=== PATIENT | female | born 1990 | race Caucasian/White ===

== ENCOUNTER 2019-05-25 12:20 | Emergency (ER) | payer OTHER, SELFPAY ==
[2019-05-25 12:29] VITALS: BP 136/90; PULSE 116; RESP 18; TEMP 36.2; O2SAT 100
--- NOTE | 2019-05-25 13:38 | ED.URI ---
HPI - URI/Sore Throat General Chief Complaint: Skin/Abscess/Foreign Body Stated Complaint: possible hand foot and mouth Time Seen by Provider: 05/25/19 13:38 Source: patient, RN notes reviewed and other (significant other) Mode of arrival: ambulatory Limitations: no limitations and other (anxious and jittery) History of Present Illness HPI Narrative: 29-year-old female accompanied by significant other presents to express care with complaints of red scattered lesions on legs, buttocks and some on face with some scabbing noted on areas where patient has been picking at lesions. Patient states that she has applied aloe lotion to her rash states areas burn rates her discomfort as 4/10. Patient has past history of drug use has been on Methadone previously, states that she is presently in drug rehab and denies any recent illicit drug use. 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 Patient states that she thinks maybe she has hand foot and mouth, no lesions noted on palms of hands, feet or in mouth. Patient denies any fevers chills, appearance is MD elicited complaint: other (scattered lesions on body) Pertinent past history: other (Hepatitis C) Consistency: constant Severity: moderate Pain scale (0-10): 4 Able to tolerate fluids by mouth: Yes Exacerbating factors: nothing Relieving factors: nothing Associated symptoms: denies other symptoms Treatments prior to arrival: other (aloe to skin lesions) Related Data Home Medications Medication Instructions Recorded Confirmed budesonide-formoterol [Symbicort] 2 puff INHALATION Q12H 05/25/19 05/25/19 fluoxetine 20 mg PO DAILY 05/25/19 05/25/19 hydroxyzine HCl 50 mg PO TID 05/25/19 05/25/19 omeprazole 20 mg PO DAILY 05/25/19 05/25/19 quetiapine 200 mg PO HS 05/25/19 05/25/19 Allergies Allergy/AdvReac Type Severity Reaction Status Date / Time codeine Allergy Intermediate rash and Verified 05/25/19 13:51 vomiting Review of Systems Review of Systems: Narrative: CONSTITUTIONAL: Denies fever, chills, or sweats. EYES: Denies visual changes, redness, or discharge. ENT: Denies rhinorrhea, congestion, sore throat, or otalgia. CARDIOVASCULAR: Denies chest pain, palpitations, or edema. RESPIRATORY: Denies cough or dyspnea. GASTROINTESTINAL: Denies abdominal pain, nausea, vomiting, or diarrhea. GENITOURINARY: Denies dysuria or hematuria. SKIN:scattered red circular lesion noted on anterior and posterior legs, between buttock folds, some to face states burn MUSCULOSKELETAL: Denies back pain, joint pain, or myalgia. NEUROLOGIC: Denies headache, numbness, or weakness. PSYCHIATRIC: Positive history of anxiety,bipolar depression. illicit drug use. Is anxious and jittery All systems reviewed & are unremarkable except as noted in HPI and below PMFSH Past Medical History Medical History (Updated 05/27/19 @ 20:36 by Shelby Awan NP) Asthma Bipolar depression GERD (gastroesophageal reflux disease) Hepatitis C Surgical History Surgical History (Updated 05/27/19 @ 20:29 by Shelby Awan NP) H/O LEEP Hx of tonsillectomy Status post tooth extraction, class I edentulism Social History Social History (Updated 05/27/19 @ 20:37 by Shelby Awan NP) Smoking packs per day: 1 Smoking cigarettes per day: 20.0 Smoking status: Current every day smoker Substance use: unknown Substance use type: heroin Living arrangements: with family Gender identity (if verbalized by the patient): Female Comments At time of signature, agree with nursing past medical, surgical, social and family history. There is no relevant family history pertinent to the presenting complaint Exam Narrative: Exam Narrative: GENERAL: unkept-appearice, edentulous, well-nourished, and in no acute distress. HEAD: Normocephalic, atraumatic. EYES: PERRLA and EOMI. ENT: Nares clear, no rhinorrhea or epistaxis. Mucous membrane
== END 2019-05-25 14:05 | disposition home or self-care (01) ==
PROVIDERS: Emergency Provider Registered Nurse
DX: R21 Rash and other nonspecific skin eruption (principal); F17.200 Nicotine dependence, unspecified, uncomplicated; J45.909 Unspecified asthma, uncomplicated; F31.9 Bipolar disorder, unspecified; K21.9 Gastro-esophageal reflux disease without esophagitis; Z86.19 Personal history of other infectious and parasitic diseases
CPT/HCPCS: 99213; G0463

== ENCOUNTER 2019-11-04 18:55 | Emergency (ER) | payer OTHER, SELFPAY ==
[2019-11-04 19:04] VITALS: BP 131/89; PULSE 78; RESP 18; TEMP 36.9; O2SAT 96
--- NOTE | 2019-11-04 19:17 | ED.PREGNANCY ---
HPI - General Chief complaint: Vaginal Bleeding Stated complaint: preg/vag bleed Time Seen by Provider: 11/04/19 19:09 History of Present Illness HPI Narrative: Patient presents in the custody of the assisted guards, for vaginal bleeding. She had a little bit yesterday, and again a little bit today. she says that she is and her last menstrual period was in June. That would make her Ab0. She has no pain or discomfort. She has small amount of light pink vaginal discharge. She had hypertension with her last . She has 2 live children. She is worried that she has miscarried. She has a history of hepatitis C. Her surgery history includes tonsillectomy, LEEP, and lithotripsy. She used to smoke cigarette, she used to smoke marijuana, she used to do drugs. She has been in assisted for 2 months. She has not been sick otherwise. MD Complaint: vaginal bleeding Onset (ago): day(s) Pain Consistency: intermittent Location: pelvis Severity: mild Exacerbating factors: none Associated symptoms: denies other symptoms Vaginal bleeding: light Hx Last Menstrual Period: June Related Data Home Medications Medication Instructions Recorded Confirmed hydroxyzine pamoate [Vistaril] 25 mg PO TID 11/04/19 omeprazole 11/04/19 ondansetron HCl 11/04/19 11/04/19 sertraline 50 mg PO DAILY 11/04/19 Allergies Allergy/AdvReac Type Severity Reaction Status Date / Time codeine Allergy Nausea and Verified 11/04/19 18:56 Vomiting latex Allergy Rash Verified 11/04/19 18:56 Review of Systems Review of Systems: Narrative: CONSTITUTIONAL: Denies fever, chills, or sweats. EYES: Denies visual changes, redness, or discharge. ENT: Denies rhinorrhea, congestion, sore throat, or otalgia. CARDIOVASCULAR: Denies chest pain, palpitations, or edema. RESPIRATORY: Denies cough or dyspnea. GASTROINTESTINAL: Denies abdominal pain, nausea, vomiting, or diarrhea. GENITOURINARY: Denies dysuria or hematuria. She does have frequency of urination. SKIN: Denies rash or itching. MUSCULOSKELETAL: Denies back pain, joint pain, or myalgia. NEUROLOGIC: Denies headache, numbness, or weakness. . All systems reviewed & are unremarkable except as noted in HPI and below PMFSH Past Medical History Medical History (Updated 11/04/19 @ 19:25 by Angella Chacon MD) History of LEEP (loop electrosurgical excision procedure) of cervix complicating Surgical History Surgical History (Updated 11/04/19 @ 19:24 by Angella Chacon MD) History of lithotripsy History of tonsillectomy Social History Social History (Updated 11/04/19 @ 19:24 by Angella Chacon MD) Smoking status: Former smoker Alcohol intake: former Substance use: former Gender identity (if verbalized by the patient): Female Exam Narrative: Exam Narrative: GENERAL: Well-appearing, well-nourished, and in no acute distress. HEAD: Normocephalic, atraumatic. EYES: PERRLA and EOMI. ENT: Nares clear, no rhinorrhea or epistaxis. Mucous membranes moist. NECK: Supple. CHEST: Clear to auscultation. No respiratory distress. HEART: Regular rate and rhythm. No murmur heard. Normal peripheral pulses. ABDOMEN: Soft, nontender, nondistended, normal active bowel sounds. EXTREMITIES: Normal range of motion. No edema. SKIN: Warm, dry, no rash. NEURO: No focal deficits. Alert and oriented x3. PSYCH: Normal mood and affect. : Normal exterior. No vaginal bleeding. Scant blood on the speculum. ROs closed. uterus only slightly enlarged. Course Reevaluation(s) Reevaluation #1: Went back in the room and talk to the patient about her test results. Told her that this is a threatened , and that she will need to follow-up visit next week to determine whether or not the will be successful. Date: 11/04/19 Time: 20:13 Vital Signs Vital signs: Vital Signs Temperature 98.5 F 11/04/19 19:04 Pulse Rate 78 11/04/19 19:04 Respiratory Rate 18 11/04/19 19:
--- NOTE | 2019-11-04 19:20 | PC.NURSE ---
No heart tones heard per Doppler-Dr Chacon aware
[2019-11-04 19:34] LABS: Basophils Percent Auto 0.3 % (0.2-1.2); Eosinophils Absolute Auto 0.2 K/mm3 (0-0.3); Eosinophils Percent Auto 2.6 % (0-4.4); Hematocrit 38.9 % (37.0-47.0); Hemoglobin 13.4 g/dL (12.0-15.0); Immature Granulocyte Absolute 0.02 K/mm3 (0.00-0.031); Immature Granulocyte Percent A 0.2 % (0-0.5); Lymphocytes Absolute Auto 3.02 K/mm3 (0.9-3.2); Lymphocytes Percent Auto 34.5 % (18.3-44.2); Mean Corpuscular HGB Conc 34.4 g/dl (32-36); Mean Corpuscular Hemoglobin 29.8 pg (26-34); Mean Corpuscular Volume 86.6 fl (80-100); Mean Platelet Volume 9.8 fl (7.4-10.4); Monocytes Absolute Auto 0.6 K/mm3 (0.1-0.6); Monocytes Percent Auto 7.3 % (2.6-8.5); Neutrophils Absolute Auto 4.8 K/mm3 (1.3-6.7); Neutrophils Percent Auto 55.1 % (45.5-73.1); Platelet Count Result 258 k/mm3 (150-375); Red Blood Count 4.49 M/mm3 (4.2-5.4); Red Cell Distribution Width 14.6 % (11.5-14.5); White Blood Count 8.8 K/mm3 (4.5-10.0)
[2019-11-04 19:39] LABS: Add Urine Microscopic? YES; Appearance Urine Clear (Clear); Bilirubin Urine Negative (Negative); Blood Urine 1+ (Negative); Color Urine Straw (Yellow); Glucose Urine UA Negative (Negative); Ketones Urine Negative (Negative); Leukocyte Esterase Ur Negative LEU/UL (Negative); Mucus Urine Rare /lpf; Nitrate Urine Negative (Negative); Protein Urine Negative (Negative); Specific Grav Ur 1.009 (1.001-1.035); Squamous Epithelial Cell Urine Rare /hpf (Few); Urobilinogen Urine Negative mg/dL (<2.0)
[2019-11-04 19:51] VITALS: BP 120/75; BP 137/84; PULSE 69; PULSE 72
[2019-11-04 19:53] VITALS: BP 108/86; PULSE 78
[2019-11-04 20:00] LABS: Urine Pregnancy Test Positive
[2019-11-04 20:01] LABS: Pregnancy On Board Control Positive; Specific Gravity Ur 1.007 (1.010-1.035)
== END 2019-11-04 20:25 ==
PROVIDERS: Emergency Medicine; Emergency Provider Emergency Medicine
DX: O20.0 Threatened abortion (principal); Z3A.00 Weeks of gestation of pregnancy not specified; Z87.891 Personal history of nicotine dependence
CPT/HCPCS: 36415; 81001; 81025; 84702; 85025; 85461; 99284

== ENCOUNTER 2019-11-10 13:57 | Emergency (ER) | payer OTHER, SELFPAY ==
--- NOTE | ~2019-11-10 | US_ITS ---
EXAMINATION: US OB >= 14 weeks Fetus DATE: 11/10/2019 14:45 INDICATION: Vaginal bleeding. . TECHNIQUE: Real-time ultrasound of the pelvis was performed. COMPARISON: None. FINDINGS: There is a single living fetus in variable presentation. The placenta is anterior and covers the int ernal cervical os. heart rate is 154 beats per minute (bpm). The amniotic fluid volume is subje ctively normal. The following biometric data were obtained: Biparietal diameter (BPD): 2.9 cm; head circumference (HC): 10.5 cm; abdominal circumference (AC): 8. 5 cm; femur length (FL): 1.7 cm. These measurements are concordant. Estimated weight is 112 g +/- 17 g. As single measurements, these parameters are each equal to the following estimated gestational ages: BPD: 15 weeks 1 days. HC: 15 weeks 0 days. AC: 14 weeks 6 days. FL: 15 weeks 1 days. estimated gestational age based solely on measurements from this exam is 15 weeks 0 days +/- 1 weeks 0 days. IMPRESSION: 1. Single living fetus in variable presentation. 2. Estimated gestational age of 15 weeks and 0 days with estimated date of delivery of 05/03/2020. 3. Placenta previa. Follow-up ultrasound is recommended later in the second trimester to confirm reso lution. Reviewed, dictated and finalized at location B. IMPRESSION: 1. Single living fetus in variable presentation. 2. Estimated gestational age of 15 weeks and 0 days with estimated date of del ivan of 05/03/2020. 3. Placenta previa. Follow-up ultrasound is recommended later in the second tri mester to confirm resolution.
[2019-11-10 14:13] VITALS: BP 121/83; PULSE 68; RESP 18; TEMP 36.8; O2SAT 97
--- NOTE | 2019-11-10 14:16 | ED.ABDPAIN ---
HPI - Abdominal Pain General Chief Complaint: Vaginal Bleeding <MICK Berry Last Filed: 11/10/19 16:05> Stated Complaint: , bleeding <MICK Berry Last Filed: 11/10/19 16:05> Time Seen by Provider: 11/10/19 14:08 <MICK Berry Last Filed: 11/10/19 16:05> Source: patient and police <MICK Berry Last Filed: 11/10/19 16:05> Mode of arrival: ambulatory <MICK Berry Last Filed: 11/10/19 16:05> Limitations: no limitations <MICK Berry Last Filed: 11/10/19 16:05> History of Present Illness HPI narrative: Patient is a 29-year-old female currently incarcerated who presents from the care home for evaluation of continued bleeding noted as red blood at this time patient is been seen in the last week after having spotting had blood work performed was discharged home. Patient denies any pain or other complaints and on arrival is in the room in no distress notes she has roughly 8 weeks per last menstrual period. Patient is G3, P2. <MICK Berry Last Filed: 11/10/19 16:05> Related Data Home Medications: Home Medications Medication Instructions Recorded Confirmed budesonide-formoterol [Symbicort] 2 puff INHALATION Q12H 05/25/19 05/25/19 fluoxetine 20 mg PO DAILY 05/25/19 05/25/19 hydroxyzine HCl 50 mg PO TID 05/25/19 05/25/19 omeprazole 20 mg PO DAILY 05/25/19 05/25/19 quetiapine 200 mg PO HS 05/25/19 05/25/19 hydroxyzine pamoate [Vistaril] 25 mg PO TID 11/04/19 omeprazole 11/04/19 ondansetron HCl 11/04/19 11/04/19 sertraline 50 mg PO DAILY 11/04/19 <MICK Berry Last Filed: 11/10/19 16:05> Allergies/Adverse Reactions: Allergies Allergy/AdvReac Type Severity Reaction Status Date / Time codeine Allergy Intermediate rash and Verified 11/10/19 15:53 vomiting latex Allergy Rash Unverified 11/10/19 15:53 <Orestes Soto PA-C - Last Filed: 11/10/19 16:05> Review of Systems Review of Systems: All systems reviewed & are unremarkable except as noted in HPI and below <Orestes Soto PA-C - Last Filed: 11/10/19 16:05> PMFSH Past Medical History Medical History: Medical History (Updated 11/10/19 @ 16:05 by Orestes Soto PA-C) Asthma Bipolar depression GERD (gastroesophageal reflux disease) Hepatitis C Hepatitis C History of LEEP (loop electrosurgical excision procedure) of cervix complicating <Orestes Soto PA-C - Last Filed: 11/10/19 16:05> Surgical History Surgical History: Surgical History (System 11/10/19 @ 15:53 by Ivet Mullins) H/O LEEP History of lithotripsy History of tonsillectomy Hx of tonsillectomy Status post tooth extraction, class I edentulism <MICK Berry Last Filed: 11/10/19 16:05> Social History Social History: Social History (System 11/10/19 @ 15:53 by Ivet Mullins) Smoking packs per day: 1 Smoking cigarettes per day: 20.0 Smoking status: Current every day smoker Alcohol intake: former Substance use: unknown Substance use type: heroin Gender identity (if verbalized by the patient): Female <MICK Berry Last Filed: 11/10/19 16:05> Exam Narrative: Exam Narrative: GENERAL: Well-appearing, well-nourished, and in no acute distress. HEAD: Normocephalic, atraumatic. EYES: PERRLA and EOMI. ENT: Nares clear, no rhinorrhea or epistaxis. Mucous membranes moist. CHEST: Clear to auscultation. No respiratory distress. No wheezes rales or rhonchi HEART: Regular rate and rhythm. No murmur heard. Normal peripheral pulses. ABDOMEN: Soft, nontender, nondistended EXTREMITIES: Normal range of motion. No edema. SKIN: Warm, dry, no rash. NEURO: No focal deficits. Alert and oriented x3. PSYCH: Normal mood and affect. <MICK Berry Last Filed: 11/10/19 16:05> Course Course Emergency Course: Patient in the room at this t
--- NOTE | 2019-11-10 14:20 | PC.NURSE ---
Pt to U/S via . Officers remain w/ pt.
[2019-11-10] MEDS: SODIUM CHLORIDE 0.9% IV 1,000 ML 999 ML IV CONT (14:50)
[2019-11-10 15:08] LABS: Alanine Aminotransferase 49 U/L (4-35); Albumin Level 3.8 g/dL (3.5-5.1); Alkaline Phosphatase 92 U/L (38-126); Anion Gap 6 mmol/L (8-16); Aspartate Amino Transferase 44 U/L (14-36); Bilirubin,Total 0.2 mg/dL (0.2-1.3); Blood Urea Nitrogen 9 mg/dL (7-17); Calcium 8.8 mg/dL (8.4-10.2); Carbon Dioxide 21 mmol/L (22-30); Chloride 106 mmol/L (98-107); Estimated CRCL calculation 164 ml/min; Estimated Glomerular Filt Rate > 60; Glucose 96 mg/dL (65-105); Sodium 133 mmol/L (137-145)
[2019-11-10 15:28] VITALS: BP 124/73; PULSE 74; RESP 20; O2SAT 99
[2019-11-10 15:40] LABS: Add Urine Microscopic? YES; Appearance Urine Clear (Clear); Bilirubin Urine Negative (Negative); Blood Urine 1+ (Negative); Color Urine Yellow (Yellow); Glucose Urine UA Negative (Negative); Ketones Urine Negative (Negative); Leukocyte Esterase Ur Trace LEU/UL (Negative); Mucus Urine Rare /lpf; Nitrate Urine Negative (Negative); Protein Urine Negative (Negative); RBC Urine 0-2 /hpf (0-2); Specific Grav Ur 1.016 (1.001-1.035); Squamous Epithelial Cell Urine Many /hpf (Few); Urobilinogen Urine Negative mg/dL (<2.0)
[2019-11-10 16:26] VITALS: BP 128/69; PULSE 69; RESP 18; O2SAT 97
== END 2019-11-10 16:28 | disposition home or self-care (01) ==
PROVIDERS: Emergency Medicine Emergency Medical Services; Emergency Provider General Practice; PCP Obstetrics & Gynecology
DX: O20.9 Hemorrhage in early pregnancy, unspecified (principal); Z3A.08 8 weeks gestation of pregnancy
CPT/HCPCS: 36415; 76805; 80053; 81001; 84702; 85461; 87077; 87086; 87088; 87186; 96360; 99284; J7030

== ENCOUNTER 2024-10-21 16:51 | Emergency (ER) | payer OTHER, SELFPAY ==
--- OUTSIDE RECORDS SUMMARY | 2024-10-21 16:54 | XMS_ITS | Patient Health Record ---
Author Organization [facility] Address [address] [place] [address] Care Team Providers Care Keyboard Instrument Repairer Name Role Phone Juan C Cardoso Primary Care Provider [phone] Cece Hanna Unavailable [phone] [facility], [facility] Unavailable U Johana Brock Unavailable [phone] Oanh Vázquez Unavailable [phone] Joellen Ayala Unavailable Allergies Allergen (clinical drug ingredient) Drug/Non Drug Allergy documented on EMR Reaction Allergy Type Onset Date Status Latex latex (uncoded) swelling Allergy Acti ve codeine Codeine Sulfate hives Drug Allergy A ctive Results Component Value Reference Range Notes Chlamydia trachomatis,Neisse chico gonorrhoeae, and Trichomonas vaginalis, GUI ([id number]) Reviewed date:08/30/2024 09:57:39 AM Interpretation:Normal Performing Lab:[facility], [address] [place] [address] [facility], Phone - [phone], Director - Mimi Notes/Report: Chlamydia by GUI Negative Negative Gonococcus by GUI Negative Negative Trich vag by GUI Negative Negative Glucose Fingerstick Reviewed date:08/09/2024 04:59:07 PM Interpretation: Performing Lab: Notes/Report: Result 82 70 - 120 mg/dL 12 Panel Urine Drug Screen Reviewed date:08/09/2024 04:59:14 PM Interpretation: Performing Lab: Notes/Report: THC neg JHON neg MOP (OPI) neg AMP neg MET neg BAR neg BZO neg MDMA neg MTD neg OXY neg PCP neg BUP neg Test, Urine Reviewed date:08/09/2024 04:59:21 PM Interpretation: Performing Lab: Notes/Report: Test, Urine neg Negative - Negative Breathalyzer Reviewed date:08/09/2024 04:59:27 PM Interpretation: Performing Lab: Notes/Report: DAVID 0.008 Test, Urine Reviewed date:08/25/2024 12:02:48 PM Interpretation: Performing Lab: Notes/Report: Test, Urine neg Negative - Negative 12 Panel Urine Drug Screen Reviewed date:08/25/2024 12:03:34 PM Interpretation: Performing Lab: Notes/Report: THC neg JHON neg MOP (OPI) neg AMP neg MET neg BAR neg BZO neg MDMA neg MTD neg OXY neg PCP neg BUP pos 14 Panel Urine Drug Screen Reviewed date:09/08/2024 11:19:03 AM Interpretation: Performing Lab: Notes/Report: THC neg JHON neg MOP (OPI) neg AMP neg MET neg BAR neg BZO neg MDMA neg MTD neg OXY neg PCP neg BUP POS TCA neg FTY neg 14 Panel Urine Drug Screen Reviewed date:10/04/2024 11:16:59 AM Interpretation: Performing Lab: Notes/Report: THC neg JHON neg MOP (OPI) neg AMP neg MET neg BAR neg BZO neg MDMA neg MTD neg OXY neg PCP neg BUP POS TCA neg FTY neg Chlamydia trachomatis,Neisse chico gonorrhoeae, and Trichomonas vaginalis, GUI ([id number]) Reviewed date:08/11/2024 01:35:48 PM Interpretation: Performing Lab:[facility], [address] [place] [address], Phone - [phone], Director - Mimi Notes/Report: Chlamydia by GUI Negative Negative Gonococcus by GUI Negative Negative Trich vag by GUI Positive Negative 14 Panel Urine Drug Screen Reviewed date:09/15/2024 11:04:03 AM Interpretation: Performing Lab: Notes/Report: THC neg JHON neg MOP (OPI) neg AMP neg MET neg BAR neg BZO neg MDMA neg MTD neg OXY neg PCP neg BUP POS TCA neg FTY neg Reason For Referral No Information Medications Medication SIG (Take, Route, Frequency, Duration) Notes Start Date End Date Status Melatonin 5 MG 1 tablet at bedtime as needed Orally Once a day; Duration: 30 days 08/08/2024 Active Sublocade 300 MG/1.5ML 1.5 mL Subcutaneo us every 28 days 09/15/2024 Active Ventolin HFA 108 (90 Base) MCG/ACT 2 puffs as needed for shortness of breath Inhalation every 4 hrs 08/26/2024 Active Buprenorphine HCl 8 MG 1 tablet under th e tongue and allow to dissolve Sublingual twice a day; Duration: 7 days 09/08/2024 Active Promethazine-DM 6.25-15 MG/5ML 5 mL as needed Orally every 6 hrs; Duration: 10 days 08/26/2024 Active Sublocade 300 MG/1.5ML 1.5 mL Subcutaneo us Once 10/04/2024 Active Nicotine Polacrilex 4 MG Chew 1 piece as needed for nicotine cravings Mouth/Throat up to every hour (max of 20 pieces per day); Duration: 7 days 08/08/2024 Active Ipratropium Lockwood 0.03 % 2 sprays in each nostril Nasally Twice a day; Duration: 30 days As needed congestion 08/26/2024 Active Multi Vitamin - 1 tablet Orally Once a day; Duration: 30 days 08/08/2024 Active Acetaminophen 500 MG two tablets as need ed for pain (maximum of 6 tablets in 24 hours) Orally every 6 hrs 08/26/2024 Active SEROquel 25 MG 1 tablet Orally twice a day; Duration: 30 days As needed 08/18/2024 Active Ondansetron HCl 4 MG 1 tablet Orally thr ee times daily as needed; Duration: 30 days Not-Taking Zoloft 50 MG 1 tablet Orally Once a day; Duration: 30 days Active SEROquel 100 MG 1.5 tablet x4 days then 2 tablets x26 days Orally Once a day; Duration: 30 days Active BuSpar 10 MG 1 tablet Orally thre e times daily; Duration: 30 days Active Phenazopyridine HCl 200 MG 1 tablet afte r meals Orally Three times a day Not-Taking metroNIDAZOLE 500 MG 1 tablet Orally twi ce a day; Duration: 7 days 08/10/2024 Active tiZANidine HCl 4 MG 1 tablet as needed Orally Three times a day Not-Taking hydrOXYzine HCl 25 MG 1 capsule Orally every 8 hrs; Duration: 30 days As needed 08/08/2024 Active ProAir HFA 108 (90 Base) MCG/ACT 2 puffs as needed Inhalation every 6 hrs; Duration: 30 days Not-Daphne g Immunizations Vaccine Route Administration Date Status Comme nts FLU VAC NO PRSV 4VAL 6 mo+ IM Intramuscular 01/14/2019 Adm inistered Social History Tobacco Use: Social History Observation Description Date Details (start date - stop date) Current Smoker NA - NA Sex Assigned At : Social History Observation Description Sex Assigned At Female Alcohol Screen (Audit-C) Question Answer Notes Did you have a drink contain ing alcohol in the past year? Yes How often did you have a dri nk containing alcohol in the past year? Monthly or less (1 point) How many drinks did you have on a typical day when you were drinking in the past year? 10 or more drinks (4 points) How often did you have 6 or more drinks on one occasion in the past year? Less than monthly (1 point) Points 6 Interpretation Positive PRAPARE Question Answer Notes Date Completed/Updated: 08/08/2024 What is your current housing situation? I do not have housing (staying with others, in a hotel, in a usp, living outside on the street, on a beach, or in a park) Client is current homeless, client has been in prison since July 15 and is not sure where she is going after finishing in the [facility]. Client believes once she gets through treatment she will have an easier time trying to find stable housing. Are you worried about losing your housing? Yes What is the highest level of school that you have finished? High school diploma or GED What is your current work situation? Unemployed and seeking work In the past year, have you o r any family members you live with been unable to get any of the following when it was really needed? Check all that apply Food,Clothing,Medicine or any health care (medical, dental, mental health or vision) Has lack of transportation k ept you from medical appointments, meetings, work or from getting things needed for daily living? Yes, it has kept me from medical appointments or from getting my medications How often do you see or talk to people that you care about and feel close to? (For example: talking to friends on the phone, visiting friends or family, going to anabaptism or club meetings) More than 5 times a week How stressed are you? Stress is when someone feels tense, nervous, anxious, or can\t sleep at night because their mind is troubled Quite a bit In the past year have you sp ent more than 2 nights in a row in a prison, residential, long-term center, or juvenile correctional facility? Yes What was your release date? 08/08/2024 Do you feel physically and emotionally safe where you currently live? Unsure In the past year, have you b een afraid of your partner or ex-partner? No PRAPARE Score: 14 Enabling Services Provided? Yes Please specify Case Management Asse ssment First Visit Tobacco Control (Standard) Question Answer Notes Tobacco use: Current every day smoker Additional Findings: Tobacco user Heavy cigarett e smoker (20-39 cigs/day) Section Notes: Problems Problem Type SNOMED Code ICD Code Onset Dates Problem Status W/U Status Risk Notes Problem Tobacco user (827358555) Nicotine dependence, unspecified, uncomplicated (F17.200) Active confirmed Problem Nausea (179274191) Nausea (R11.0) Active confir med Problem Tobacco dependence (18367816) Tobacco dependence (F17.200) Active confirmed Problem Major depression (950475334) Major depression (F32.9) Active confirmed Problem Anxiety (39225269) Anxiety (F41.9) Active confi rmed Problem Bipolar 1 disorder (514570002) Bipolar 1 disorder (F31.9) Active confirmed Problem (91122781) (Z33.1) Active confirmed Problem Urinary tract infectious disease (65170686) UTI (urinary tract infection) (N39.0) Active confirmed Problem Seizure disorder (285171141) Seizure disorder (G40.909) Active confirmed Problem Overweight (110488123) Over weight (E66.3) Active confirmed Problem Exposure to sexually transmissible disorder (event) (388794995) STD exposure (Z20.2) Active confirmed Problem Delayed menses (24265986) Delayed menses (N91.0) Active confirmed Problem Chronic hepatitis C (086669823) Chronic hepatitis C without hepatic coma (B18.2) 020 Active confirmed Problem Opioid dependence (54279250) Opioid use disorder, severe (F11.20) Active confirmed Problem Gastroesophageal reflux disease (437084646) GERD without esophagitis (K21.9) Active confirmed Problem Reflux gastritis (72399343) Reflux gastritis (K29.60) Active confirmed Problem Asthma without status asthmaticus (11905981) Asthma, unspecified asthma severity, unspecified whether complicated, unspecified whether persistent (J45.909) Active confirmed Problem Hand, foot and mouth disease (739539051) Hand, foot and mouth disease (B08.4) Active confirmed Problem Mild persistent asthma with exacerbation (J45.31) Active confirmed Problem Opioid use disorder (1329920274) Opioid use disorder (F11.99) Active confirmed Problem Stimulant dependence (008719167) Methamphetamine use disorder, moderate (F15.20) Active confirmed Vital Signs Heart Rate 60 /min 10/04/2024 Temperature 98.8 degrees Fahrenheit 08/26/2024 Respiratory Rate 18 /min 10/04/2024 Oximetry 97 % 10/04/2024 Blood pressure diastolic 62 mm Hg 10/04/2024 Height 64 in 10/04/2024 Blood pressure systolic 100 mm Hg 10/04/2024 Weight 155 lb 6 oz lbs 10/04/2024 BMI 26.67 kg/m2 10/04/2024 Encounters Encounter Location Date Provider Diagnosis [facility] [place] [address] 08/09/2024 Cece Hanna [facility] [place] [address] 08/08/2024 Cece Hanna Opioid use disorder F11.99 ; Methamphetamine use disorder, moderate F15.20 ; Exposure to potential infection Z20.9 and Encounter for annual physical exam Z00.00 [facility] [place] [address] 08/08/2024 Joellen Ayala Opioid use disorder F11.99 and Methamphetamine use disorder, moderate F15.20 [facility] [address] [address] 08/24/2024 Cece Sparshannan Opioid use disorder, severe F11.20 ; Bipolar 1 disorder F31.9 and Tobacco dependence F17.200 [facility] [place] [address] 08/25/2024 Johana Patel Opioid use disorder, severe F11.20 ; Over weight E66.3 and STD exposure Z20.2 [facility] [address] [place] [address] 08/26/2024 Juan C Cardoso Over weight E66.3 ; Viral URI with cough J06.9 and Asthma, unspecified asthma severity, unspecified whether complicated, unspecified whether persistent J45.[address] [address] 09/08/2024 Oanh Szlufik Opioid use disorder F11.99 and Over weight E66.[address] [address] 09/15/2024 Oanh Szlufik Opioid use disorder F11.99 and Over weight E66.[address] [address] 10/04/2024 Oanh Szlufik Opioid use disorder F11.99 and Over weight E66.[address] [address] 07/29/2024 Juan C Cardoso [address] [address] 08/09/2024 Juan C Cardoso [address] [address] 08/10/2024 Juan C Cardoso Trichomonas vaginali s (TV) infection A59.01 [facility] [address] [place] [address] 08/15/2024 Cece Hanna Bipolar 1 disorder F31.9 Assessments Encounter Date Diagnosis (ICD Code) Assessment Notes Treatment Notes Treatment Clinical Notes Section Notes 08/24/2024 Bipolar 1 disorder (ICD-10 - F31.9) Reasons, potential benefits, interactions and side effects of all medications were discussed. The Patient/Guardian asked appropriate questions, appeared to understand the answers, and decided to accept the treatment and continue being followed. Alternatives and expected course without treatment were reviewed. The Patient/Guardian is aware of the need to contact the office or return for an earlier appointment if any problems or concerns arise. May also contact the 24-hour crisis hotline ([facility]), refer to the closest emergency room or call 911 if new symptoms arise or existing symptoms worsen. The Patient/Guardian is aware that this would apply to symptoms like: suicidal ideation, homicidal ideation, high risk behaviors, manic symptoms, psychotic symptoms, physical symptoms, or any other symptoms that may be dangerous to self or others. Greater than 50% of time spent on coordination and counseling where psychopharmacology as well as psychotherapeutic interventions were discussed along with review of treatments in the past. Education provided concerning need for adequate hydration. Patient/Guardian verbalized understanding of education, treatment plan and follow up. Appointment performed via secure Zoom connection while pt is on [facility] Follow up in 4 weeks or sooner as needed. May self-administer or be administered own oral medication per [place] Protocols. Provided informed consent with understanding of side effects, risks and benefits as well as alternative treatments as previously discussed and with the above recommended medications ang other aspects of the treatment program. Agrees to return sooner if symptoms worsen or suicidal or homicidal ideations occur. support and education provided concerning illness and treatment plan, risks and benefits, pt verbalized understanding of the same and agreeable - presented via secure Zoom connection with pt on [facility]. Has been treated for mood disorders and disruptive behavior since she was 14. Met her bio Dad at 14 yrs old and feels like she started experiencing more problems from then on. DARLING, mainly fentynal, along with meth and cocaine. Quit using July 14, 2024. Admitted to [facility] approx 2 weeks ago. Experiencing mood swings, some irritability, mild depression, moderate to severe anxiety. Easily irritated.Easily distracted. Ok energy and motivation. Poor quality sleep due to difficulty maintaining sleep. Denies SI/HI, AH/VH. Had been stable on current med regimen but stopped taking meds 7-8 months ago. Prefers to continue with same med regimen, but feels Seroquel needs to be titrated. - titrate Seroquel for mood swings, depression, anxiety, evaluate at follow up 08/24/2024 Opioid use disorder, severe (ICD-10 - F11.20) - -remains on [facility] for DARLING - will be DC'd to [facility] in a couple weeks - Buprenorphine has alleviated cravings, denies thoughts or dreams of using. Prefers to taper Buprenorphine - taper Buprenorphine for DARLING, evaluate at follow up 08/15/2024 Bipolar 1 disorder (ICD-10 - F31.9) 08/25/2024 Opioid use disorder, severe (ICD-10 - F11.20) 08/26/2024 Over weight (ICD-10 - E66.3) 08/26/2024 Viral URI with cough (ICD-10 - J06.9) MASK X 10 DAYS, ISOLATE X 5 DAYS. 09/15/2024 Over weight (ICD-10 - E66.3) 09/15/2024 Opioid use disorder (ICD-10 - F11.99) 08/10/2024 Trichomonas vaginalis (TV) infection (ICD-10 - A59.01) 08/08/2024 Opioid use disorder (ICD-10 - F11.99) 08/08/2024 Opioid use disorder (ICD-10 - F11.99) SUPR Programs: Based on an evaluation of [facility] Patient Placement Criteria, a recommendation for placement in Level III treatment is indicated and approved. Confirmation of diagnosis is documented in the initial treatment plan.SUPR Programs: Based on an evaluation of [facility] Patient Placement Criteria, a recommendation for placement in Level III treatment is indicated and approved. Confirmation of diagnosis is documented in the initial treatment plan.Admit to the [facility] and initiate standing/protocol orders: The following PRN medications may be self-administered by patients under the supervision of approved staff or administered by nursing staff: Ibuprofen 200mg, 2-4 tablets by mouth (with food) every 6 hours as needed for pain (unless on lithium). (NOTE: Ibuprofen and acetaminophen may be given together, but alternating is recommended for continuous pain relief. Guaifenesin 400 mg, 1 tablet by mouth every four hours as needed for cough and chest congestion (take with large glass of water). Loratadine 10 mg, 1 tablet by mouth daily as needed for allergies, watery itchy eyes, or sinus drainage. Throat Lozenges, up to 4 tablets by mouth every three to four hours as needed for sore throat. Antacid tablets, 1-2 tablets by mouth every one to two hours as needed for indigestion or heart burn. If the client prefers liquid, could use: Liquid Antacid : 1 ounce by mouth up to four times daily as needed for indigestion or heartburn Omeprazole 20mg, 1 capsule by mouth once daily for 14 days for frequent heartburn (frequent heartburn is more than 2 episodes per week). Do not exceed 14 days. Do not give to client already taking a proton-pump inhibitor: esomeprazole (Nexium), lansoprazole (Prevacid), pantoprazole (Protonix), rabeprazole (Aciphex), dexlansoprazole (Dexilant) Zofran ODT disintegrating (under the tongue) 4 mg, 1-2 tablets every 8 hours as needed for nausea/vomiting. Milk of Magnesia (MOM): 1 ounce (30 milliliters) by mouth every day as needed for constipation. OR Miralax: Stir and fully dissolve 17 grams (1 packet or 1 capful to measured line) in any 4 to 8 ounces of beverage then drink once daily for constipation. Do not use for more than 7 days. OR Docusate 100 mg, 1 capsule twice daily as needed for constipation Hydrocortisone 1% Cream, apply topically (to the skin) to the affected area up to three times daily as needed for itching or inflammation (avoid eyes and genitals). 2% Antifungal Cream, apply topically (to the skin) as directed as needed to affected areas for athlete's foot or jock itch. Triple Antibiotic Ointment, apply topically (to the skin) up to three times daily as needed for minor cuts and scrapes. Carmex or Chapstick, apply topically (to the skin) as needed for chapped lips and skin. Orajel, apply to affected areas as needed for mouth or tooth pain. Lubricating Eye Drops, instill 1-2 drops to the affected eye(s) as needed for dry/irritated eye(s). Hemorrhoid medications, apply to affected area according to directions as needed for hemorrhoid discomfort and itch. Nix (Permethrin 1%) cream 2 ounces, apply topically (to the skin) as directed as needed for head lice. Sunscreen 30 SPF, Apply to exposed skin prior to exposure to sun. The following PRN medications must be approved by nursing staff before self-administration by patients: Diphenhydramine 25 mg, 2 tablets by mouth every 4 hours as needed for allergic reaction or itchy rash. Caution: Do not use hydroxyzine within 4 hours of diphenhydramine and vice versa. Loperamide 2 mg capsules, may give two capsules by mouth for the initial dose, followed by one capsule up to 3 times a day as needed for diarrhea. Acetaminophen 500 mg, 1 - 2 tablets by mouth every six hours as needed for pain. (NOTE: Ibuprofen and acetaminophen may be given together, but alternating is recommended for continuous pain relief). Oxygen-May administer oxygen 2L/min via nasal cannula if O2 saturation is less than 92%, AND client complains of shortness of breath. Target O2 saturation is 94-98%. Caution: Remember too much oxygen can be detrimental to a client with COPD. Oxygen is a drug and should be delivered by trained staff only. Nurses may remove superficial splinters and sutures from skin lacerations. May apply gauze or bandages to any weeping wounds. Contact nursing if there is pus, a foul odor, increased pain/redness/swellin g, or if soaking through bandages.Admit to the [facility] and initiate standing/protocol orders: The following PRN medications may be self-administered by patients under the supervision of approved staff or administered by nursing staff: Ibuprofen 200mg, 2-4 tablets by mouth (with food) every 6 hours as needed for pain (unless on lithium). (NOTE: Ibuprofen and acetaminophen may be given together, but alternating is recommended for continuous pain relief. Guaifenesin 400 mg, 1 tablet by mouth every four hours as needed for cough and chest congestion (take with large glass of water). Loratadine 10 mg, 1 tablet by mouth daily as needed for allergies, watery itchy eyes, or sinus drainage. Throat Lozenges, up to 4 tablets by mouth every three to four hours as needed for sore throat. Antacid tablets, 1-2 tablets by mouth every one to two hours as needed for indigestion or heart burn. If the client prefers liquid, could use: Liquid Antacid : 1 ounce by mouth up to four times daily as needed for indigestion or heartburn Omeprazole 20mg, 1 capsule by mouth once daily for 14 days for frequent heartburn (frequent heartburn is more than 2 episodes per week). Do not exceed 14 days. Do not give to client already taking a proton-pump inhibitor: esomeprazole (Nexium), lansoprazole (Prevacid), pantoprazole (Protonix), rabeprazole (Aciphex), dexlansoprazole (Dexilant) Zofran ODT disintegrating (under the tongue) 4 mg, 1-2 tablets every 8 hours as needed for nausea/vomiting. Milk of Magnesia (MOM): 1 ounce (30 milliliters) by mouth every day as needed for constipation. OR Miralax: Stir and fully dissolve 17 grams (1 packet or 1 capful to measured line) in any 4 to 8 ounces of beverage then drink once daily for constipation. Do not use for more than 7 days. OR Docusate 100 mg, 1 capsule twice daily as needed for constipation Hydrocortisone 1% Cream, apply topically (to the skin) to the affected area up to three times daily as needed for itching or inflammation (avoid eyes and genitals). 2% Antifungal Cream, apply topically (to the skin) as directed as needed to affected areas for athlete's foot or jock itch. Triple Antibiotic Ointment, apply topically (to the skin) up to three times daily as needed for minor cuts and scrapes. Carmex or Chapstick, apply topically (to the skin) as needed for chapped lips and skin. Orajel, apply to affected areas as needed for mouth or tooth pain. Lubricating Eye Drops, instill 1-2 drops to the affected eye(s) as needed for dry/irritated eye(s). Hemorrhoid medications, apply to affected area according to directions as needed for hemorrhoid discomfort and itch. Nix (Permethrin 1%) cream 2 ounces, apply topically (to the skin) as directed as needed for head lice. Sunscreen 30 SPF, Apply to exposed skin prior to exposure to sun. The following PRN medications must be approved by nursing staff before self-administration by patients: Diphenhydramine 25 mg, 2 tablets by mouth every 4 hours as needed for allergic reaction or itchy rash. Caution: Do not use hydroxyzine within 4 hours of diphenhydramine and vice versa. Loperamide 2 mg capsules, may give two capsules by mouth for the initial dose, followed by one capsule up to 3 times a day as needed for diarrhea. Acetaminophen 500 mg, 1 - 2 tablets by mouth every six hours as needed for pain. (NOTE: Ibuprofen and acetaminophen may be given together, but alternating is recommended for continuous pain relief). Oxygen-May administer oxygen 2L/min via nasal cannula if O2 saturation is less than 92%, AND client complains of shortness of breath. Target O2 saturation is 94-98%. Caution: Remember too much oxygen can be detrimental to a client with COPD. Oxygen is a drug and should be delivered by trained staff only. Nurses may remove superficial splinters and sutures from skin lacerations. May apply gauze or bandages to any weeping wounds. Contact nursing if there is pus, a foul odor, increased pain/redness/swellin g, or if soaking through bandages. -presented for physical prior to admission to [facility], exam completed, stable for admission .. . 08/08/2024 Methamphetamine use disorder, moderate (ICD-10 - F15.20) - MAR as recommended .. . 10/04/2024 Over weight (ICD-10 - E66.3) 10/04/2024 Opioid use disorder (ICD-10 - F11.99) The second injection of SUBLOCADE may be administered as early as one week after the first injection (Sublocade package insert). Following this injection, return to maintence dosing (every 28 days) 09/08/2024 Opioid use disorder (ICD-10 - F11.99) Switch to buprenorphine injection next visit. Provided information on Sublocade/Brixadi 09/08/2024 Over weight (ICD-10 - E66.3) 08/08/2024 Exposure to potential infection (ICD-10 - Z20.9) , Trichomoniasis: Care Instructions material was printed .. . 08/08/2024 Methamphetamine use disorder, moderate (ICD-10 - F15.20) 08/26/2024 Asthma, unspecified asthma severity, unspecified whether complicated, unspecified whether persistent (ICD-10 - J45.909) 08/24/2024 Tobacco dependence (ICD-10 - F17.200) smoking cessation education provided, currently using nicotine patches 08/25/2024 Over weight (ICD-10 - E66.3) 08/25/2024 STD exposure (ICD-10 - Z20.2) 08/08/2024 Encounter for annual physical exam (ICD-10 - Z00.00) Continue treatment as recommended by [facility] staff. Encouraged patient to obtain routine medical care with patient's own primary care provider or establish as a patient at [facility] if no current primary care provider.Reviewed and signed MAT Guidelines and completed the MAT Screening. Answered questions regarding the medication and the MAT program. Scheduled appointment for a physical. Informed that lab work will be completed as well that day. Patient agreed to ask for [facility] at time of physical to schedule the MATNP appointment. .. . 08/08/2024 Other .. . 08/08/2024 Other Clinician met w ith client to assess needs for residential services. Clinician gathered information regarding historical presentation of mental health and substance use symptoms including withdrawal, HIV Risk assessment, psychiatric hospitalization history and presenting concern. Clinician conducted PHQ9 and CSSRS assessments as well as social drivers of health screening for the purposes of identifying additional service needs. 09/08/2024 Other Patient agrees to take medication as prescribed. Discussed medication side effects, adverse effects, risks, benefits, as well as interactions. Encouraged non-use of opioids and other illicit substances. Has naloxone. Discontinuing buprenorphine increases the risk of overdose upon return to illicit opioid use. Use of alcohol or benzodiazepines with buprenorphine increases the risk of overdose and . Education provided about safe storage of medications. Encouraged participation in recovery groups/counseling services. Contact office with questions or concerns. Patient may self-administ er their own medications or may self-administ er their own oral medications per [facility] Protocol. 09/15/2024 Other Patient agrees to take medication as prescribed. Discussed medication side effects, adverse effects, risks, benefits, as well as interactions. Encouraged non-use of opioids and other illicit substances. Has naloxone. Discontinuing buprenorphine increases the risk of overdose upon return to illicit opioid use. Use of alcohol or benzodiazepines with buprenorphine increases the risk of overdose and . Education provided about safe storage of medications. Encouraged participation in recovery groups/counseling services. Contact office with questions or concerns. Patient may self-administ er their own medications or may self-administ er their own oral medications per [facility] Protocol. May not self-administ er Sublocade. 10/04/2024 Other Patient agrees to take medication as prescribed. Discussed medication side effects, adverse effects, risks, benefits, as well as interactions. Encouraged non-use of opioids and other illicit substances. Has naloxone. Discontinuing buprenorphine increases the risk of overdose upon return to illicit opioid use. Use of alcohol or benzodiazepines with buprenorphine increases the risk of overdose and . Education provided about safe storage of medications. Encouraged participation in recovery groups/counseling services. Contact office with questions or concerns. Patient may self-administ er their own medications or may self-administ er their own oral medications per [facility] Protocol. May not self-administ er Sublocade Plan Of Treatment Pending Test Test Name Order Date TSH* 09/08/2018 CBC With Differential/Platelet* 09/09/19 19 CMP 14 Comprehensive Metabolic Panel* Future Test Test Name Order Date Hemoglobin A1c CLIA Waived 08/08/2024 RPR, Rfx Qn RPR/Confirm TP-PA 08/08/2024 HIV Screen *HIV 1, 2 Ab, p24 Ag ([id number]) 08/08/2024 CBC With Differential/Platelet* 08/09/19 25 CMP 14 Comprehensive Metabolic Panel* QuantiFERON-TB Gold Plus ([id number]) 2024 Insurance Providers Payer Name Payer Address Payer Phone Subscriber Number Group Number Insured Name Patient Relationship to Insured Coverage Start Date Coverage End Date [employer] [address] [place] [phone] [id number] Iva Solis Self - patient is the insured [employer] [address] [place] [phone] [id number] Iva Soils Self - patient is the insured 0 [employer] [address] [place] [phone] [id number] Iva Solis Self - patient is the insured 5 [employer] [address] [place] [phone] [id number] Iva Solis Self - patient is the insured 4 Medications Administered Medication Instructions Date of Administration Dosage Notes Sublocade 09/15/2024 300 mg Mei Carlisle 09/15/2024 11:35:37 AM CDT >Pt tolerated well. No s&s of adverse reaction. Sublocade 10/04/2024 300 mg eMi Carlisle 10/04/2024 11:55:20 AM CDT > Pt tolerated well. No s&s of adverse reaction. Vivitrol 10/13/2017 380 mg Exp Dec 2019 m anufact by [employer] pt alexandra well. Vivitrol 08/11/2018 380 mg Tolerated well Vivitrol 09/08/2018 380 mg Exp July 2020 M anufact by alkermes pt alexandra well. Vivitrol 10/06/2018 380 mg Exp Aug 2020 M anufact by [employer]ermes Pt alexandra well. Vivitrol 12/29/2018 380 mg Exp Aug 2020 m anufact by [employer] Pt alexandra well. Sample used. Vivitrol 01/27/2019 380 mg pt tolerated w ell. instructed to massage area and pt voiced understanding. Vivitrol 02/22/2019 380 mg Manufact by al curtismes pt alexandra well. 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 Vivitrol 04/19/2019 380 mg Manufact by Al kermes Pt alexandra well. Vivitrol 05/18/2019 380 mg Manufact by al kermes pt alexandra well. Vivitrol 06/15/2019 380 mg Tolerated well . Instructed to massage site over next couple days to prevent knot. Verbalized understanding. Vivitrol 07/13/2019 380 mg Manufact by Al kermes Pt alexandra well. Vivitrol 08/09/2019 380 mg Manufact by Al kermes pt alexandra well. Medical (General) History Medical History History ICD Code Asthma Anxiety Bipolar disorder Hepatitis C Opioid Use Disorder Surgical History Surgery Date(Month/Year) tonsillectomy 2003 kidney stones 2011 LEEP 2005 Hospitalization History Reason Date(Month/Year) chest tubes 2022 thoracentesis 2022 Detox [facility] 06/2022 [facility] for Detox Mar 2022 pneumonia 01/2017
--- OUTSIDE RECORDS SUMMARY | 2024-10-21 16:54 | XMS_ITS | Data Portability ---
Author Organization [facility], [facility], [place] Address [address] [place] [address] [place] [address] Assessment No assessment recorded. Plan of Treatment Reminders Order Date Submit Date Provider Last Modified By Organization Details Last Modified Time Details Appointments None recorded. Lab None recorded. Referral None recorded. Procedures None recorded. Surgeries None recorded. Imaging US, obstetric , limited 2019 [email or web address] [place], [facility] [address], [place], [address], 0 21:24:21 Medication Orders aspirin 81 mg chewable tablet 2019 020 [facility], [address] [place] [address], [address], 0 15:05:58 Triveen-D uo DHA 29 mg-1 mg-400 mg oral pack 2019 020 [facility], [address] [place], [address], 0 15:10:34 Zofran 4 mg tablet 2019 020 [facility], [address] [place], [address], 0 15:20:31 ProAir HFA 90 mcg/actua tion aerosol inhaler 2019 020 [facility], [address] [place], [address], 0 15:06:00 Tylenol Extra Strength 500 mg tablet 2019 020 [facility], [address] [facility], [place], [address], 0 15:15:10 Patient TargetsNo targets recorded. Patient InstructionsNo instructions recorded. Reason for Referral None Reported. Results Created Date Observation Date Name Description Value Unit Range Abnormal Flag Note LastModifiedBy Organization Detail LastModifiedTime 11/22/19 20 11/22/2019 destini ic disea se lisa sis, blood or tissu e n/a Negati ve Not Available [facility] [address] [place] [address], [address], 11/22/2019 11:23:02 11/22/19 20 11/22/2019 destini ic disea se lisa sis, blood or tissu e list of tested genes and transcripts N/A Not Available [employer] [address] [place] [address], [address], 11/22/2019 11:23:02 11/22/19 20 11/22/2019 destini ic disea se lisa sis, blood or tissu e methods See Notes Cell- free nucle ic acid extra ction from mater nal blood , DNA seque ncing and lisa sis of seque nced regio ns are perfo rmed to deter mine the risk of speci fic chrom osoma l abnor malit ies. The Invit ae non-i nvasi ve prena dany scree n is valid ated to detec t triso mies of chrom osome s 21, 18, and 13, sex chrom osome aneup loidi es, and delet ions invol ving speci fic chrom osoma l regio ns (1p36 .3-p3 6.2, 4p16. 3-p16 .2, 5p15. 3-p15 .1, 15q11 .2-q1 3.1 and 22q11 .21) in singl eton pregn ancie s at a minim um gesta sunita l age of 10 weeks 0 days. Addit ional ly, the test is valid ated to detec t triso mies of chrom osome s 21, 18, and 13 and the prese nce of chrom osome Y for twin pregn ancie s at a minim um gesta sunita l age of 10 weeks 0 days. This test was devel oped and its perfo rmanc e gurdeep cteri stics deter mined by [employer] macdonald. It has not been clear ed or appro tammy by the FDA. The labor atory is regul ated under the Clini stefani Labor atory Impro vemen t Act (CLIA ) as quali fied to perfo rm high- compl exity clini stefani tests (CLIA ID: [id number] ). This test is used for clini stefani purpo ses. It shoul d not be regar ded as inves tigat ional or for resea rch. Not Available [facility] [address], [place], [address], 11/22/2019 11:23:02 11/22/19 20 11/22/2019 destini ic disea se lisa sis, blood or tissu e limitations See Notes This non-i nvasi ve prena dany scree natalie (NIPS ) test is valid ated for detec ting triso mies of chrom osome s 21, 18, and 13, sex chrom osome aneup loidi es, and delet ions invol ving speci fic chrom osoma l regio ns (1p36 .3-p3 6.2, 4p16. 3-p16 .2, 5p15. 3-p15 .1, 15q11 .2-q1 3.1 and 22q11 .21) in singl eton pregn ancie s at a minim um gesta sunita l age of 10 weeks 0 days, as well as for detec ting triso mies of chrom osome s 21, 18, and 13 and prese nce of chrom osome Y for twin pregn ancie s at a minim um gesta sunita l age of 10 weeks 0 days. NIPS relie s on the prese nce of fragm ents of cell- free place ntal and mater nal DNA in mater nal blood to asses s the risk of an affec yanira pregn octavio. Many facto rs, both mater nal (mate rnal blood trans fusio n, surge ry, organ trans plant , immun other apy, neopl asm, or mosai cism) and pregn octavio- relat ed (jurgen shing twin, demis e, confi neeraj place ntal mosai cism, true mosai cism, unipa renta l disom y, and polyp loidy ), can affec t the resul ts. NIPS is inten ded for scree natalie purpo ses only, thus false negat maureen and false posit maureen resul ts occur . This test does not asses s the risk for other condi tions , inclu ding defec ts, open spine or ventr al wall defec ts, intel lectu al disab ility , singl e gene disor ders, or chrom osoma l abnor malit ies other than those liste d above . The PPV and NPV calcu latio ns repor yanira do not take into accou nt addit ional clini stefani infor matio n such as previ ous scree natalie resul ts, posit maureen famil y histo ry or abnor mal ultra sound findi ngs. It is the duty of the healt hcare provi max to inter pret these resul ts in the itz xt of the patie nt's clini stefani and famil y histo ry and to recom mend destini ic couns eling and addit ional testi ng when appro priat e. Not Available [facility] [address] [place], [address], 11/22/2019 11:23:02 11/22/1911/22/2019 destini ic disea se lisa sis, blood or tissu e summary See Notes Not Available [facility] [address] [place], [address], 11/22/2019 11:23:02 11/14/19 20 11/15/2019 prena dany panel WBC 6.7 K/uL 3.8-11 .5 Not Available [facility] ([facility]) [address] [facility] [address], [place], [address], 11/15/2019 19:46:39 11/14/19 20 11/15/2019 prena dany panel red blood cell count (RBC) 4.37 M/mm3 3.60-5 .30 Not Available [facility]) [address] [place] [address] [address], [place], [address], 11/15/2019 19:46:39 11/14/19 20 11/15/2019 prena dany panel hemoglobin (HGB) 13.3 gm/dL 11.5-1 5.5 Not Available [facility] ([facility]) [address] [place] [address] [address], [place], [address], 11/15/2019 19:46:39 11/14/19 20 11/15/2019 prena dany panel hematocrit (HCT) 39.1 % 35.2-4 6.4 Not Available [facility] ([facility]) [address] [place] [address] [address], [place], [address], 11/15/2019 19:46:39 11/14/19 20 11/15/2019 prena dany panel MCV 89.5 fL 79.0-9 9.0 Not Available [facility] ([facility]) [address] [place] [address] [address], [place], [address], 11/15/2019 19:46:39 11/14/19 20 11/15/2019 prena dany panel MCH 30.4 pg 26.9-3 5.0 Not Available [facility] ([facility]) [address] [place] [address] Dr [address], [place], [address], 11/15/2019 19:46:39 11/14/19 20 11/15/2019 prena dany panel MCHC 34.0 g/dL 30.4-3 4.8 Not Available [facility] ([facility]) [address] [place] [address] Dr [address], [place], [address], 11/15/2019 19:46:39 11/14/19 20 11/15/2019 prena dany panel RDW 47.7 fL 38.6-5 3.8 Not Available [facility] ([facility]) [address] [place] [address] [address], [place], [address], 11/15/2019 19:46:39 11/14/19 20 11/15/2019 prena dany panel platelet count 275 K/cum m 137-39 7 Not Available [facility] ([facility]) [address] [place] [address] Dr [address], [place], [address], 11/15/2019 19:46:39 11/14/19 20 11/15/2019 prena dany panel neutrophils automated 60.6 % 41.0-7 7.0 Not Available [facility] ([facility]) [address] [place] [address] Dr [address], [place], [address], 11/15/2019 19:46:39 11/14/19 20 11/15/2019 prena dany panel lymphocytes automated 30.1 % 14.0-4 8.0 Not Available [facility] ([facility]) [address] [place] [address] Dr [address], [place], [address], 11/15/2019 19:46:39 11/14/19 20 11/15/2019 prena dany panel monocytes automated 6.7 % 4.0-13 .0 Not Available [facility] ([facility]) [address] [place] [address] Dr [address], [place], [address], 11/15/2019 19:46:39 11/14/19 20 11/15/2019 prena dany panel eosinophils automated 1.9 % 0.0-8. 0 Not Available [facility] ([facility]) [address] [place] [address] Dr [address], [place], [address], 11/15/2019 19:46:39 11/14/19 20 11/15/2019 prena dany panel basophils automated 0.6 % 0.0-1. 5 Not Available [facility]) [facility] [address], [place], [address], 11/15/2019 19:46:39 11/14/19 20 11/15/2019 prena dany panel immature granulocyte automated 0.1 % 0.0-1. [address] [facility] ([facility]) [facility] [address], [place], [address], 11/15/2019 19:46:39 11/14/19 20 11/15/2019 prena dany panel ABO type, blood bank A Not Available [facility] ([facility]) [address] [place] [address] Dr [address], [place], [address], 11/15/2019 19:46:39 11/14/19 20 11/15/2019 prena dany panel Rh typing, blood bank POSITI VE RH testi ng resul ts (RH Posit maureen/R H Negat maureen) are depen dent upon reage nt formu latio ns, techn ical perfo rmanc e of assay , and testi ng platf orm or metho dolog y. With the elimi natio n of routi ne testi ng for the weak expre ssion of the D antig en, some patie nts who have previ ously been class ified as RH Posit maureen many now be repor yanira as RH Negat maureen, or rarel y, vice versa . If you have any quest ions regar ding this test, pleas e call our Clien t Servi olinda depar tment . Not Available [facility]) [address] [place] [address] Dr [address], [place], [address], 11/15/2019 19:46:39 11/14/19 20 11/15/2019 prena dany panel antibody screen, reflex to identificati on NEGATI VE negati ve Not Available [facility]) [address] [place] [address] Dr [address], [place], [address], 11/15/2019 19:46:39 11/14/19 20 11/15/2019 prena dany panel rubella antibody, IgG 76.3 IU/mL >9.9 INTER PRETA TION OF RESUL TS < 10.0 Non-i mmune /Non- react maureen >= 10.0 Immun e/Ursula ctive Prese nce of antib odies to Rubel la is presu mptiv e evide nce of immun ity excep t when acute infec tion is suspe cted. Not Available [facility] ([facility]) [address] [place] [address] Dr [address], [place], [address], 11/15/2019 19:46:39 11/14/19 20 11/15/2019 prena dany panel hemoglobin A1C 5.0 % <5.7 The follo wing HbA1c range s recom walter d by the Ameri can Diabe rosalie Assoc iatio n (ADA) may be used as an aid in the diagn osis of diabe rosalie melli tus. HA1c Sugge sted Diagn osis >=6.5 % Diabe tic 5.7% - 6.4% Pre-D iabet ic <5.7% Non-D iabet ic Not Available [facility] ([facility]) [address] [place] [address] Dr [address], [place], [address], 11/15/2019 19:46:39 11/14/19 20 11/15/2019 prena dany panel HIV 1/2 Ab screen w/p24ag Nonrea ctive nonrea ctive Not Available [facility] ([facility]) [address] [place] [address] Dr [address], [place], [address], 11/15/2019 19:46:39 11/14/19 20 11/15/2019 prena dany panel hepatitis B surface antigen (HBsAg) Nonrea ctive nonrea ctive Not Available [facility] ([facility]) [address] [place] [address] Dr [address], [place], [address], 11/15/2019 19:46:39 11/14/19 20 11/15/2019 prena dany panel hepatitis C antibody (HCV) IgG Reacti ve nonrea ctive abnormal Resul ts repea yanira. Any posit maureen/r eacti ve resul ts shoul d be inter prete d in view of patie nt's clini stefani histo ry. If furth er testi ng is requi red, pleas e recol lect and order Hep. C Virus RNA Quant . by PCR. Pleas e conta ct [facility]' s Clien t Servi ce Depar tment for test order codes and speci men requi remen ts for these tests . Not Available [facility] ([facility]) [address] [place] [address] Dr [address], [place], [address], 11/15/2019 19:46:39 11/14/19 20 11/15/2019 prena dany panel syphilis screening profile, treponemal antibody Nonrea ctive nonrea ctive Not Available [facility] ([facility]) [address] [place] [address] Dr [address], [place], [address], 11/15/2019 19:46:39 11/14/1911/15/2019 estim ated avera ge gluco se estimated average glucose 97 mg/dL [place] ge Gluco se is calcu lated using the equat ion AG = (28.7 x HgbA1 c) - 46.7 based on the guide lines estab lishe d by the ADA. Not Available [facility] ([facility] [place]) [address] [place] [address] Dr [address], [place], [address], 11/15/2019 19:46:40 11/14/1911/16/2019 pap, LB Pap test thin prep Negati ve for Intrae pithel ial Lesion or Malign octavio normal ACCES PALMIRA #: [id number] Sourc e: Cervi stefani/E ndoce rvica l LMP: pt was unsur e e Date Taken : 11/13 Speci men Type: ThinP rep Vial Date Repor yanira: 2019 Clini stefani Data: Pregn ant Cytot ech: Willi am Ha Solle y, CT( CP) Date Repor yanira: 2019 Speci men Adequ acy: Satis facto ry for evalu ation Endoc ervic al/tr ansfo rmati on zone compo nent prese nt Gener al Categ oriza tion: NEGAT MAUREEN FOR INTRA EPITH ELIAL LESIO N OR MALIG KENNY The follo wing tests have been order ed as reque sted and a separ ate repor t will be issue d: Chlam ydia, Gonor rhoea e, and Trich omona s This speci men has been lisa zed by the ThinP rep Imagi ng Syste m, an inter activ e compu ter syste m which brent ts the lab in the [facility] of ThinP rep Pap Test slide s. Follo wing imagi ng, the slide was revie wed by a Cytot echno logis t and/o r Patho logis t. End of t Techn ical servi olinda provi ded by [facility] iatMandy [employer] P[employer] Patho logis [employer], d/b/a Path[facility]ter su[facility], [address] [place] [address] Mark Schaefer MD, Labor ator Dire tor. Case revie wed and diagn osis rende red at [facility] [employer] [place], d/b/a [facility] su[facility], [address] [place] [address] Mark Schaefer MD, Labor ator Dire tor. CONFI DENTI AL Not Available [facility] ([facility]) [address], [place], [address], 11/16/2019 17:56:25 11/14/19 20 11/16/2019 CT + NG DNA, PCR, unspe cifie d speci men trichomonas vaginalis, aptima (panther) NOT DETECT ED normal DNA testi ng perfo rmed by [employer] yanira Ampli ficat ion (TMA) These resul ts shoul d be inter prete d in light of all clini stefani and labor atory findi ngs. This assay is highl y accur ate, but rare false posit maureen and negat maureen resul ts may occur . Posit maureen resul ts in low preva lence popul ation s may requi re re-ev aluat ion. A negat maureen resul t does not precl ude a possi ble infec tion due to a speci men inade quacy or sampl ing error . Test perfo rmed by [facility] logis [employer], [place], d/b/a [facility], [address], [place] [address] , Evan Flowers ra, DO, Labor atory Direc tor. Not Available [facility]) [facility], [place], [address], 11/16/2019 17:56:25 11/14/19 20 11/16/2019 CT + NG DNA, PCR, unspe cifie d speci men neisseria gonorrhoeae, aptima NOT DETECT ED normal DNA testi ng perfo rmed by [employer] yanira Ampli ficat ion (TMA) These resul ts shoul d be inter prete d in light of all clini stefani and labor atory findi ngs. This assay is highl y accur ate, but rare false posit maureen and negat maureen resul ts may occur . Posit maureen resul ts in low preva lence popul ation s may requi re re-ev aluat ion. A negat maureen resul t does not precl ude a possi ble infec tion due to a speci men inade quacy or sampl ing error . Test perfo rmed by [employer]ated Path[employer] logis [employer], d/b/a Path[facility]ter roujr, [address], [place] [address] , Evan Flowers ra, , Labor atory Direc tor. Not Available [facility]) [facility] [address], [place], [address], 11/16/2019 17:56:25 11/14/19 20 11/16/2019 CT + NG DNA, PCR, unspe cifie d speci men chlamydia trachomatis, aptima DETECT ED abnormal DNA testi ng perfo rmed by [employer] yanira Ampli ficat ion (TMA) These resul ts shoul d be inter prete d in light of all clini stefani and labor atory findi ngs. This assay is highl y accur ate, but rare false posit maureen and negat maureen resul ts may occur . Posit maureen resul ts in low preva lence popul ation s may requi re re-ev aluat ion. A negat maureen resul t does not precl ude a possi ble infec tion due to a speci men inade quacy or sampl ing error . Test perfo rmed by [facility], d/b/a Ophelia suárez, [address], [place] [address] , Evan Flowers ra, DO, Labor atory Direc tor. Not Available [facility] ([facility]) [address] [facility] [address], [place], [address], 11/16/2019 17:56:25 11/14/19 20 11/14/2019 pregn octavio test, urine HCG positi ve Not Available [facility] [address], [place], [address], 11/14/2019 15:07:17 05/19/19 21 05/19/2020 US, angelia tric, limit ed interpretati on Not Available [facility] [address], [place], [address], 11/14/2019 15:13:31 11/14/19 20 US, obstjuliet tric, limit ed No observ ation record ed. [email or web address] [facility] [address], [place], [address], 11/17/2019 13:42:43 Result Notes None recorded. Procedures Surgical History Date Name Laterality Status Provider Name and Address Organization Details Recorded Time 03/30/19 19 Date of Last Pap Smear completed [facility] 11/14/2019 14:14:31 03/30/19 12 Other completed [facility] 11/14/2019 14:17:13 03/30/19 07 LEEP completed [facility] 11/14/2019 14:16:32 03/30/19 04 Tonsillectomy completed [facility] 11/14/2019 14:16:46 Imaging Results None recorded. Procedure Notes None recorded. Medical Equipment None Reported. Allergies Allergen ID Allergen Name Allergen Category Reaction Reaction Severity Criticality Documentation Date Start Date Code Code System Note Provider Name and Address Organization Details Recorded Time 1721 codeine medicatio n Not available Not available Not available 11/14/2019 2670 RxNorm [facility] 0 14:15:11 1722 latex environme nt,medica tion Not available Not available Not available 11/14/2019 50324 91 RxNorm [facility] 0 14:15:16 Medications Name Sig Start Date Stop Date Status Note LastModified by Organization Details LastModified Time quetiapine 25 mg tablet active Not Available Not Available Not Available amoxicillin 500 mg capsule 11/13 completed Not Available Not Available Not Available quetiapine 300 mg tablet active Not Available Not Available Not Available cetirizine 10 mg tablet 11/13 completed Not Available Not Available Not Available azithromyci n 250 mg tablet 11/13 completed Not Available Not Available Not Available Lidocaine Viscous 2 % mucosal solution 11/13 completed Not Available Not Available Not Available fluconazole 150 mg tablet 11/13 completed Not Available Not Available Not Available prednisone 20 mg tablet 11/13 completed Not Available Not Available Not Available quetiapine 200 mg tablet active Not Available Not Available Not Available hydroxyzine HCl 50 mg tablet 11/13 completed Not Available Not Available Not Available bacitracin zinc 500 unit/gram topical ointment 11/13 completed Not Available Not Available Not Available omeprazole 40 mg capsule,del ayed release 11/13 completed Not Available Not Available Not Available quetiapine 100 mg tablet active Not Available Not Available Not Available meloxicam 7.5 mg tablet 11/13 completed Not Available Not Available Not Available Zofran 4 mg tablet Take 1 tablet twice a day by oral route. 2019 active Not Available Not Available Not Avai lable methocarbam ol 750 mg tablet 11/13 completed Not Available Not Available Not Available cephalexin 500 mg capsule 11/13 completed Not Available Not Available Not Available triamcinolo ne acetonide 0.1 % topical ointment 11/13 completed Not Available Not Available Not Available ranitidine 150 mg tablet 11/13 completed Not Available Not Available Not Available omeprazole 20 mg capsule,del ayed release active Not Available Not Available Not Available aspirin 81 mg chewable tablet Chew 1 tablet every day by oral route. 2019 active Not Available Not Available Not Avai lable ibuprofen 600 mg tablet 11/13 completed Not Available Not Available Not Available methylpredn isolone 4 mg tablets in a dose pack 11/13 completed Not Available Not Available Not Available ondansetron 4 mg disintegrat ing tablet active Not Available Not Available N ot Available fluoxetine 20 mg capsule active Not Available Not Available Not Available fluticasone propionate 50 mcg/actuati on nasal spray,suspe nsion active Not Available Not Available Not Available Tylenol Extra Strength 500 mg tablet Take 2 tablets every 12 hours by oral route. 2019 active Not Available Not Available Not Avai lable Zoloft active Not Available Not Availa ble Not Available hydroxyzine HCl active Not Available Not Available Not Available active Not Available Not Avai lable Not Available ProAir HFA 90 mcg/actuati on aerosol inhaler Inhale 2 puffs every 4 hours by inhalatio n route. 2019 active Not Available Not Available Not Avai lable Symbicort 80 mcg-4.5 mcg/actuati on HFA aerosol inhaler active Not Available Not Available Not Available Triveen-Duo DHA 29 mg-1 mg-400 mg oral pack Take 1 pack every day by oral route. 2019 active Not Available Not Available Not Avai lable loratadine 10 mg capsule Take by oral route. active Not Available Not Available No t Available ledipasvir 90 mg-sofosbuv ir 400 mg tablet 11/13 completed Not Available Not Available Not Available Narcan 4 mg/actuatio n nasal spray 11/13 completed Not Available Not Available Not Available Vitals Date Recorded Body height Body mass index (BMI) Body weight Systolic And Diastolic Provider Name and Address Organization Details Last Updated DateTime 11/14/2019 162.56 cm 28.2 kg/m2 68647.15 g 119/80 mm[Hg] Irena Sepulveda [facility] 11/14/2019 14:20:08 Social History Question Answer Notes LastModified by Organizat ion Details LastModified Time Tobacco Smoking Status Current Every Day Smoker Irena Sepulveda [facility] 11/14/2019 14:28:37 How Much Tobacco Do You Smoke? 1 PPD Information not available 11/14/2019 How Many Years Have You Smoked Tobacco? 17 Information not available 11/14/2019 Sex: Unknown Functional Status Question Answer Note LastModified by Organization D etails LastModified Time What is your level of alcohol consumption? None Information not available 11/14/2019 What is your exercise level? None Information not available 11/14/2019 Mental Status None recorded. Family History Relationship Description Onset Age of this Age Resolved Age Notes LastModified by Organization Details LastModified Time Mother Asthma jgumber Not available 16:05:27 Mother Malignant tumor of cervix jgumber Not available 2019 16:06:00 Mother Heart disease jgumber Not available 2019 16:09:16 Mother Hypercholest erolemia jgumber Not available 2019 16:21:45 Mother Hypertensive disorder jgumber Not available 2019 16:22:30 Mother Cyst of ovary jgumber Not available 2019 16:22:52 Mother Mental disorder psychi atric diseas e jgumber Not available 11/14/2019 16:24:44 Father Asthma jgumber Not available 16:05:27 Father Hypertensive disorder jgumber Not available 2019 16:22:30 Father Mental disorder psychi atric diseas e jgumber Not available 11/14/2019 16:24:44 Maternal Grandmother Asthma jgumber Not available 2019 16:05:27 Maternal Grandmother Heart disease jgumber Not available 2019 16:09:16 Maternal Grandmother Hypercholest erolemia jgumber Not available 2019 16:21:45 Maternal Grandmother Hypertensive disorder jgumber Not available 2019 16:22:30 Maternal Grandmother Mental disorder psychi atric diseas e jgumber Not available 11/14/2019 16:24:44 Maternal Grandfather Asthma jgumber Not available 2019 16:05:27 Maternal Grandfather Heart disease jgumber Not available 2019 16:09:16 Maternal Grandfather Diabetes mellitus jgumber Not available 2019 16:21:06 Maternal Grandfather Hypercholest erolemia jgumber Not available 2019 16:21:45 Maternal Grandfather Hypertensive disorder jgumber Not available 2019 16:22:30 Maternal Grandfather Mental disorder psychi atric diseas e jgumber Not available 11/14/2019 16:24:44 Brother Asthma jgumber Not available 0 11/14/2019 16:05:27 Brother Mental disorder psychi atric diseas e jgumber Not available 11/14/2019 16:24:44 Paternal Uncle Diabetes mellitus jgumber Not available 2019 16:21:06 Paternal Uncle Hypertensive disorder jgumber Not available 2019 16:22:30 Paternal Uncle Mental disorder psychi atric diseas e jgumber Not available 11/14/2019 16:24:44 Paternal Aunt Hypertensive disorder jgumber Not available 2019 16:22:30 Paternal Aunt Mental disorder psychi atric diseas e jgumber Not available 11/14/2019 16:24:44 Maternal Uncle Mental disorder psychi atric diseas e yokoer Not available 11/14/2019 16:24:44 Medical History Condition Response Other History of abnormal pap Hepatitis/Liver Disease Y Hypertension Asthma Y Psychiatric Illness Y Gynecological History Statement/Question Response Abnormal Pap Y Date of Last Pap Smear 03/30/2018 Current Control Method None 10 Obstetrics History GPAL:G 0 P 0 0 0 0 Past Encounters Encounter ID Performer Location Encounter Start Date Encounter Closed Date Diagnosis/Indication Diagnosis SNOMED-CT Code Diagnosis ICD10 Code Diagnosis Note [id number] Berna Curran CNM [facility] [address] [address] 11/14/2019 14:01:48 11/16/2019 21:37:20 test positive 920723520 Z32.01 Risk factors addressed: Tobacco Cessation, Safe Sexual Practices, environmen dany, work hazards, travel restrictio ns, seat belt use.Eat a health well balanced diet, avoid alcohol, tobacco, and street drugs. Engage in daily low impact exercise, avoid temperatur e extremes, and cat, rodent, and bird feces.Avoi d travel to areas where zika virus is a concern.Fi rst look offered to patient. First look accepted and desires NIPT. Sequential Screen handout given and discussed with patient.Ch ildbirth classes recommende d.New OB sheet given. If previous , counseling .Pt verbalizes that she understand s the importance of above instructio ns.All questions were answered. Pt is a prisoner at [facility] and is unlikely to delivery with us due to impending transfer to [place]. All medication s even prn need written script. These were given to guards while in the office. Baby aspirin daily for history of pre-eclamp adriana Hepatitis C. Will check viral load. Pt does eat alot of lunch/deli meat. I have asked that they heat this to steaming to kill bacteria. Patient reminded to have annual well woman examinatio n and address preventati [facility] . [id number] Jamie Abel MD [facility] [address] [address] 11/14/2019 14:08:34 11/14/2019 15:23:30 screening [id number] Z36.87 Health Concerns Section Related Observation LastModified by Organization Detai ls LastModified Time None Recorded Concern Status LastModified by Organization Details LastModified Time None Recorded Advance Directives Directive None Recorded Payers Insurance Date Sequence Insurance Name Policy Number Policy Obrien Covered Member ID Obrien Member ID Guarantor Name 11/14/2019 SLIDING FEE SCHEDULE - DISCOUNT Iva Solis 11/14/2019 2 *SELF PAY* Yousuf Solis 11/16/2019 1 [employer] Iva Solis [facility] Iva Solis Notes Date Note Type Note Provider Name and Address Organization Details Recorded Time 11/14/2019 text/html Generic HPI TemplateReported by PatientLMP unsure. Cycles irregular. Pt had u/s at [place] due to bleeding. Unable to obtain report at time of visit. Pt states she is RH positive. Hep c positive. HIstory of pre-eclampsia with first . Berna Curran [facility] 11/15/2019 13:25:52 OBGyn Episode Ob Episode Information Episode Created Date Number of Fetuses Patient Bloodtype Patient rh Status Prepregnancy Weight lbs Domestic Partner Domestic Partner Phone Father Name Care Worker Status 11/14/19 20 1 CLOSED Fetus Data First Name Last Name Admitted to NICU Weight (g) Sex Living Outcome Pediatric Complications Fetus ID Race Codes Race Delivery Type 2409.48 [id number] Full Term 3821 Vaginal Delivery Wallace Calculation Initial Wallace Date Initial Exam Date Initial Exam Provider Initial Ultrasound Date Last Menstrual Period Date Ultra Sound Weeks Gestation 0 Eighteen To Twenty Week Wallace Update Ultra Sound Date Fundal Height At Umbil Quickening Date Ultra Sound Latest Weeks Gestation Final Wallace Confirmed By Final Wallace Confirmed Date Final Wallace Date Ultra Sound Latest Days Gestation 0 0 Menstrual History Last Menstrual Date Menses Monthly On Bcp Conception Prior Menses Frequency Hcg Plus Date Menarche Onset Age Delivery Information Delivery Date Delivery Type Labor Anesthesia Weeks Gestation Incision Type Labor Labor Length Hrs Delivered By Post Complications Tubal Sterilization Discharge Date Comments 8 38 preeclam p adriana Yusuf Discharge Information Feeding Method Contraceptive Method Maternal HG B and HCT Levels Ob Episode Information Episode Created Date Number of Fetuses Patient Bloodtype Patient rh Status Prepregnancy Weight lbs Domestic Partner Domestic Partner Phone Father Name Care Worker Status 11/14/19 20 1 CLOSED Fetus Data First Name Last Name Admitted to NICU Weight (g) Sex Living Outcome Pediatric Complications Fetus ID Race Codes Race Delivery Type 2438.05 [phone] Full Term 3822 Vaginal Delivery Wallace Calculation Initial Wallace Date Initial Exam Date Initial Exam Provider Initial Ultrasound Date Last Menstrual Period Date Ultra Sound Weeks Gestation 0 Eighteen To Twenty Week Wallace Update Ultra Sound Date Fundal Height At Umbil Quickening Date Ultra Sound Latest Weeks Gestation Final Wallace Confirmed By Final Wallace Confirmed Date Final Wallace Date Ultra Sound Latest Days Gestation 0 0 Menstrual History Last Menstrual Date Menses Monthly On Bcp Conception Prior Menses Frequency Hcg Plus Date Menarche Onset Age Delivery Information Delivery Date Delivery Type Labor Anesthesia Weeks Gestation Incision Type Labor Labor Length Hrs Delivered By Post Complications Tubal Sterilization Discharge Date Comments 3 40 mucus plug lost early [facility] Discharge Information Feeding Method Contraceptive Method Maternal HG B and HCT Levels
--- OUTSIDE RECORDS SUMMARY | 2024-10-21 16:54 | XMS_ITS ---
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 Name Role Phone Juan C Cardoso Primary Care Provider Cece Hanna Unavailable [phone] [place], [facility] Unavailable U Oanh Payton Unavailable [phone] Allergies Allergen (clinical drug ingredient) Drug/Non Drug Allergy documented on EMR Reaction Allergy Type Onset Date Status Latex latex (uncoded) swelling Allergy Acti ve codeine Codeine Sulfate hives Drug Allergy A ctive REASON FOR VISIT Walk-In Medications Medication SIG (Take, Route, Frequency, Duration) Notes Start Date End Date Status Multi Vitamin - 1 tablet Orally Once a day; Duration: 30 days 08/08/2024 Active Nicotine Polacrilex 4 MG Chew 1 piece as needed for nicotine cravings Mouth/Throat up to every hour (max of 20 pieces per day); Duration: 7 days 08/08/2024 Active metroNIDAZOLE 500 MG 1 tablet Orally twi ce a day; Duration: 7 days 08/10/2024 Active Melatonin 5 MG 1 tablet at bedtime as needed Orally Once a day; Duration: 30 days 08/08/2024 Active hydrOXYzine HCl 25 MG 1 capsule Orally every 8 hrs; Duration: 30 days As needed 08/08/2024 Active Buprenorphine HCl 8 MG 1 tablet under th e tongue and allow to dissolve Sublingual twice a day; Duration: 7 days 09/08/2024 Active tiZANidine HCl 4 MG 1 tablet as needed Orally Three times a day Not-Taking Phenazopyridine HCl 200 MG 1 tablet afte r meals Orally Three times a day Not-Taking Ondansetron HCl 4 MG 1 tablet Orally thr ee times daily as needed; Duration: 30 days Not-Taking ProAir HFA 108 (90 Base) MCG/ACT 2 puffs as needed Inhalation every 6 hrs; Duration: 30 days Not-Taking Promethazine-DM 6.25-15 MG/5ML 5 mL as needed Orally every 6 hrs; Duration: 10 days 08/26/2024 Active Acetaminophen 500 MG two tablets as need ed for pain (maximum of 6 tablets in 24 hours) Orally every 6 hrs 08/26/2024 Active Ipratropium [place] 0.03 % 2 sprays in each nostril Nasally Twice a day; Duration: 30 days As needed congestion 08/26/2024 Active Ventolin HFA 108 (90 Base) MCG/ACT 2 puffs as needed for shortness of breath Inhalation every 4 hrs 08/26/2024 Active BuSpar 10 MG 1 tablet Orally thre e times daily; Duration: 30 days Active SEROquel 25 MG 1 tablet Orally twice a day; Duration: 30 days As needed 08/18/2024 Active SEROquel 100 MG 1.5 tablet x4 days then 2 tablets x26 days Orally Once a day; Duration: 30 days Active Zoloft 50 MG 1 tablet Orally Once a day; Duration: 30 days Active Social History Tobacco Use: Social History Observation Description Date Details (start date - stop date) Heavy tobacco s moker NA - NA Sex Assigned At : [...] with others, in a hotel, in a penitentiary, living outside on the street, on a beach, or in a park) Client is current homeless, client has been in alf since July 15 and is not sure where she is going after finishing in the [facility]. Client believes once she gets through treatment [...] phone, visiting friends or family, going to hinduism or club meetings) More than 5 times a week How stressed are you? Stress is when someone feels tense, nervous, anxious, or can\t sleep at night because their mind is troubled Quite a bit In the past year have you sp ent more than 2 nights in a row in a alf, group home, prison center, or juvenile correctional facility? Yes What was your release date? 08/08/2024 Do you feel physically and emotionally safe where you currently live? Unsure In the past year, have you b een afraid of your partner or ex-partner? No PRAPARE Score: 14 Enabling Services Provided? Yes Please specify Case Management Asse ssment First Visit Tobacco Control (Standard) Question Answer Notes Tobacco use: Heavy tobacco smoker Additional Findings: Tobacco user Heavy cigarett e smoker (20-39 cigs/day) Section Notes: Vital Signs Height 64 in 09/15/2024 Respiratory Rate 18 /min 09/15/2024 Encounters Encounter Location Date Provider Diagnosis [address] [place] [address] 09/15/2024 Oanh Vázquez Plan Of Treatment No Information Progress Notes * Amber PRATT:1990 (34 yo F)Acc No.[id number]:09/15/2024 UNLOCKED PROGRESS NOTE Patient: Iva FIELDS Provider: Lm Vázquez, MSN, LOGISTICS PLANNING ENGINEER, PMHNP- :1990 A ge:34 Y S ex:Female Date:09/15/2024 Address:[address] [place] [address] Pcp:Juan C Cardoso Check 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 Walk-In. * HPI: I nterim History: Emergency room visit N o. W as hospitalized N o.? D epression Screening: PHQ-9 L ittle interest or pleasure in doing things N ot at all, F eeling down, depressed, or hopeless N ot at all, T rouble falling or staying asleep, or sleeping too much N ot at all, F eeling tired or having little energy N ot at all, P oor appetite or overeating N ot at all, F eeling bad about yourself or that you are a failure, or have let yourself or your family down N ot at all, T rouble concentrating on things, such as reading the newspaper or watching television S everal days, M oving or speaking so slowly that other people could have noticed; or the opposite, being so fidgety or restless that you have been moving around a lot more than usual M ore than half the days, T houghts that you would be better off or of hurting yourself in some way N ot at all, T otal Score 3 , I nterpretation M inimal Depression. C SSRS Interpretation and Follow Up Plan: CSSRS Interpretation and Follow Up Plan C SSRS Screen documented using SF Y es, R isk Disposition from L ow - No Follow Up Plan Required, F ollow Up Plan N o Follow Up Plan required at this time., T imeframe of Screening T rosario.? S creening: Reynolds Suicide Severity Rating Scale (LF) D o you want to initiate with S creener form, 1 . Wish to be : Have you wished you were or wished you could go to sleep and not wake up? N o, 2 . Suicidal Thoughts: Have you actually had any thoughts of killing yourself? N o, 6 . Suicide Behavior Question: Have you ever done anything,started to do anything, or prepared to end your life? N o, I nterpretation: L ow Risk. P reventative Health and Wellness follow-up: Action Plans for Clinical Quality Measures: C ervical Cancer Screening: N ot addressed during this visit. See notes for details.. . * Medical History: A sthma, Anxiety, Bipolar disorder, Hepatitis C, Opioid Use Disorder. * Surgical History: t onsillectomy 2003, kidney stones 2011, LEEP 2005. * Hospitalization/Major Diagno stic Procedure: p neumonia 01/2017, [facility] for Det[facility] Mar 2022, Detox [facility] 06/2022, thoracentesis 2022, chest tubes 2022. * Family History: F ather: alive, hx of drug abuse, epilepsy, lung cancer. M other: , overdose. 1 brother(s) , 1 sister(s) - healthy. 2 son(s) , 1 daughter(s) - healthy. . 2. * Social History: P [facility] Social History: L iving Arrangement L iving Arrangement: D ependent Living, L iving with: O ther: Going to [facility] upon release for [facility], I s this a supportive environment? Y es. Alcohol Use A lcohol Use Frequency: N ever. I llicit Substance Usage I llicit Substance Usage: Y es, S ubstance Used: M ethamphetamine 07/14/2024, I nterested in quitting: Y es. 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 S lillie Question Alcohol Screening H ow may times in the past year have you had (4 for women, or 5 for men) or more drinks in a day? 0 . S ocial Determinants: P RAPARE D ate Completed/Updated: 0 08/08/2024, W hat is your current housing situation? I do not have housing (staying with others, in a hotel, in a penitentiary, living outside on the street, on a beach, or in a park) Client is current homeless, client has been in alf since July 15 and is not sure where she is going after finishing in the [facility]. Client believes once she gets through treatment she will have an easier time trying to find stable housing., A re you worried about losing your housing? Y es, W hat is the highest level of school that you have finished? High school diploma or GED, W hat is your current work situation? U nemployed and seeking work, I n the past year, have you or any family members you live with been unable to get any of the following when it was really needed? Check all that apply F ood,Clothing,Medicine or any health care (medical, dental, mental health or vision), H as lack of transportation kept you from medical appointments, meetings, work or from getting things needed for daily living? Y es, it has kept me from medical appointments or from getting my medications, H ow often do you see or talk to people that you care about and feel close to? (For example: talking to friends on the phone, visiting friends or family, going to hinduism or club meetings) M ore than 5 times a week, H ow stressed are you? Stress is when someone feels tense, nervous, anxious, or can\t sleep at night because their mind is troubled Q uite a bit, I n the past year have you spent more than 2 nights in a row in a alf, group home, prison center, or juvenile correctional facility? Y es, W hat was your release date? 0 08/08/2024, D o you feel physically and emotionally safe where you currently live? U nsure, I n the past year, have you been afraid of your partner or ex-partner? N o, P RAPARE Score: 1 4, E nabling Services Provided? Jeri box P blaire specify C ase Management Assessment First Visit. T obacco Use: T obacco Control (Standard) T obacco use: H eavy tobacco smoker, A dditional Findings: Tobacco user H eavy cigarette smoker (20-39 cigs/day). D rugs/Alcohol: A lcohol Screen (Audit-C) D id you have a drink containing alcohol in the past year? Y es, H ow often did you have a drink containing alcohol in the past year? M onthly or less (1 point), H ow many drinks did you have on a typical day when you were drinking in the past year? 1 0 or more drinks (4 points), H ow often did you have 6 or more drinks on one occasion in the past year? L ess than monthly (1 point), P oints 6 , I nterpretation P ositive. M iscellaneous: M ethod of learning P referred method of learning: R eading,Discussion,Demonstration,Hearing,Other. * Medications: T aking Buprenorphine HCl 8 MG Tablet Sublingual 1 tablet under the tongue and allow to dissolve Sublingual twice a day , Taking Nicotine Polacrilex 4 MG Gum Chew 1 piece as needed for nicotine cravings Mouth/Throat up to every hour (max of 20 pieces per day) , Taking Multi Vitamin - Tablet 1 tablet Orally Once a day , Taking Melatonin 5 MG Tablet 1 tablet at bedtime as needed Orally Once a day , Taking metroNIDAZOLE 500 MG Tablet 1 tablet Orally twice a day , Taking hydrOXYzine HCl 25 MG Tablet 1 capsule Orally every 8 hrs As needed, Taking SEROquel 25 MG Tablet 1 tablet Orally twice a day As needed, Taking Zoloft 50 MG Tablet 1 tablet Orally Once a day , Taking SEROquel 100 MG Tablet 1.5 tablet x4 days then 2 tablets x26 days Orally Once a day , Taking BuSpar 10 MG Tablet 1 tablet Orally three times daily , Taking Ventolin HFA 108 (90 Base) MCG/ACT Aerosol Solution 2 puffs as needed for shortness of breath Inhalation every 4 hrs , Taking Promethazine-DM 6.25-15 MG/5ML Syrup 5 mL as needed Orally every 6 hrs , Taking Ipratropium [place] 0.03 % Solution 2 sprays in each nostril Nasally Twice a day As needed congestion, Taking Acetaminophen 500 MG Tablet two tablets as needed for pain (maximum of 6 tablets in 24 hours) Orally every 6 hrs , Not-Taking Phenazopyridine HCl 200 MG Tablet 1 tablet after meals Orally Three times a day , Not-Taking tiZANidine HCl 4 MG Tablet 1 tablet as needed Orally Three times a day , Not-Taking ProAir HFA 108 (90 Base) MCG/ACT Aerosol Solution 2 puffs as needed Inhalation every 6 hrs , Not-Taking Ondansetron HCl 4 MG Tablet 1 tablet Orally three times daily as needed * Allergies: C odeine Sulfate: hives - Allergy, latex: swelling - Allergy. Objective: * Vitals: I nitials: cv, Ht: 64, RR:18, LMP: 08/2024, Pain scale:0. Assessment: Plan: * Treatment: * Recommended Wellness and Pre vention Guidelines: * S tatus A eunicet L ast Done N ext Due A ction Taken N ONCOMPLIANT A sthma symptom assessment - 0 09/15/2024 - - N ONCOMPLIANT C ervical cancer screening - 0 09/15/2024 - - * * Electronic signature of Kelli lisa Vázquez on 10/21/2024 at 04:54 PM CDT Sign off status: Pending * Provider: Lm Vázquez, MSN, LOGISTICS PLANNING ENGINEER, PMHNP-BC Date: 0 09/15/2024 Generated for Printing/FaAudiosocket/eTransmitting on: 0 10/21/2024 04:54 PM CDT History and Physical Notes * HPI (History of Present Illness) Category Sub-Category Detail Notes Category Not es Interim History Was hospitalized No Emergency room visit No Depression Screening PHQ-9 Little inte rest or pleasure in doing things: Not at all Feeling down, depressed, or hopeless: No t at all Trouble falling or staying asleep, or sl eeping too much: Not at all Feeling tired or having little energy: N ot at all Poor appetite or overeating: Not at all Feeling bad about yourself o r that you are a failure, or have let yourself or your family down: Not at all Trouble concentrating on thi ngs, such as reading the newspaper or watching television: Several days Moving or speaking so slowly that other people could have noticed; or the opposite, being so fidgety or restless that you have been moving around a lot more than usual: More than half the days Thoughts that you would be b mony off or of hurting yourself in some way: Not at all Total Score: 3 Interpretation: Minimal Depression Screening Reynolds Suicide Sev erity Rating Scale (LF) Do you want to initiate with: Screener form 1. Wish to be : Have you wished you were or wished you could go to sleep and not wake up?: No 2. Suicidal Thoughts: Have you actually had any thoughts of killing yourself?: No 6. Suicide Behavior Question: Have you ever done anything,started to do anything, or prepared to end your life?: No Interpretation:: Low Risk Preventative Health and Wellness follow-up Action Plans for Clinical Quality Measures: Cervical Cancer Screening:: Not addressed during this visit. See notes for details. . CSSRS Interpretation and Follow Up Plan CSSRS Interpretation and Follow Up Plan CSSRS Screen documented using SF: Yes Risk Disposition from SF: Low - No Follo w Up Plan Required Follow Up Plan: No Follow Up Plan requir ed at this time. Timeframe of Screening: Today
--- OUTSIDE RECORDS SUMMARY | 2024-10-21 16:57 | XMS_ITS | Clinical Summary ---
Author Organization [facility] Address [address] [place] [address] Care Team Providers Care Director Microbiology Name Role Phone Miscellaneous, Not In File Primary Care Provider Unavailable Allergies Active Allergy Reactions Criticality Noted Date Comments Codeine Unknown Tolerates Oxycodone, Morphine 08/26/22 Latex Swelling Reaction: SWELLING Medications ibuprofen (ADVIL,MOTRIN) 600 mg tablet Take 1 tablet (600 mg total) by mouth every 6 (six) hours as needed for pain 20 tablet 9 Active acetaminophen 500 mg capsule Take 2 capsules (1,000 mg total) by mouth every 8 (eight) hours as needed for headaches (Pain) for up to 20 doses 40 capsule 9 Active QUEtiapine (SEROquel) 25 mg tablet Take 1 tablet (25 mg total) by mouth every morning Active QUEtiapine (SEROquel) 100 mg tablet Take 1 tablet (100 mg total) by mouth nightly Active sertraline (ZOLOFT) 50 mg tablet Take 1 tablet (50 mg total) by mouth daily Active busPIRone (BUSPAR) 10 mg tablet Take 1 tablet (10 mg total) by mouth 2 (two) times a day Active umeclidinium-vi lanteroL (ANORO ELLIPTA) 62.5-25 mcg/actuation blister with device Inhale 1 puff daily 30 each 3 Active albuterol HFA (PROVENTIL HFA,VENTOLIN HFA,PROAIR HFA) 90 mcg/actuation inhaler Inhale 2 puffs every 6 (six) hours as needed for wheezing or shortness of breath 1 each 11 3 Active Active Problems Problem Noted Date Diagnosed Date Bilateral pneumothorax 08/21/2022 Fentanyl dependence 07/15/2022 Pneumonia of both lungs due to infectious organism, unspecified part of lung 07/14/2022 Severe protein-calorie malnutrition 06/18/2022 Assessment & Plan (06/18/2022 12:06 PM CDT): Being managed by a doctor of dental surgery. Patient does state that she has meant to lose weight. Opioid withdrawal 06/16/2022 Assessment & Plan (06/18/2022 1:12 PM CDT): Pt presents for opioid, methamphetamine w/d. She uses about 12-20 bags per day; uses by IV: EtOH use no. Marijuana use. Lungs. Time is 23 months of being clean. Patient's withdrawal symptoms are improving. Had 1 dose of Suboxone yesterday which she did not tolerate, has required multiple p.r.n. meds since admission, requested Imodium this morning. - WHO consulted, will follow recs - Will offer PRN Bentyl, Vistaril, Methocarbamol, and imodium - we will discuss with warm handoff about Subutex versus Suboxone therapy moving forward [facility], she is going to call and try to figure out a plan for her. - continue to monitor Mild intermittent asthma without complication Assessment & Plan (06/18/2022 12:03 PM CDT): Patient has wheezing on initial presentation and cough. Symptoms significantly improved. - ipratropium daily - p.r.n. DuoNeb - p.r.n. albuterol Tobacco use 06/16/2022 Assessment & Plan (06/18/2022 12:03 PM CDT): #of pack years: 30. Tolerate nicotine patch - Patient has been educated about the risks of smoking and benefits of stopping. Patient has been advised to quit, and if that fails, to discuss pharmacological options with their PCP. - Discussed potential effects of tobacco including lung cancer, COPD, heart disease, and stroke - Nicotine patch daily Marijuana abuse 06/16/2022 Assessment & Plan (06/16/2022 4:21 PM CDT): Patient is smokes marijuana on a daily basis. Methamphetamine abuse 06/16/2022 Assessment & Plan (06/16/2022 4:21 PM CDT): Patient will use methamphetamine every other day. Hepatitis C 06/16/2022 Bipolar 1 disorder 06/16/2022 Assessment & Plan (06/18/2022 12:04 PM CDT): Patient has a history of significant mental health disorders. Comorbid conditions include anxiety and depression. She treats these with substance use. Use Seroquel, BuSpar, Prozac in the past. She is unsure of any other bipolar medications that she may have use. Patient is requesting to start back on her her Zoloft, will see how she tolerates Seroquel tonight. Will consider adding on tomorrow. - Seroquel 25 mg in the a.m., will add Seroquel 50 mg at night. Major depressive disorder 06/16/2022 Assessment & Plan (06/18/2022 12:05 PM CDT): PHQ 9 was 4 on presentation to hospital. She does not have any feelings of wanting to hurt herself or anyone else, no depression noted. - consider adding on Zoloft on June 19. Anxiety 06/16/2022 Assessment & Plan (06/18/2022 12:05 PM CDT): Patient is obviously anxious, probably secondary to her withdrawal symptoms. We will continue to monitor her anxiety and provide symptomatic relief. Anxiety stable at this time - refrain from using IV and oral benzodiazepines. - will continue BuSpar. Cellulitis 06/16/2022 Assessment & Plan (06/18/2022 12:06 PM CDT): Left forearm is warm and erythematous, along the areas where she injects. No obvious fluctuance noted at presentation. Redness and swelling in the region is significantly improved. -continue doxycycline b.i.d. -Continue to monitor Streptococcal bacteremia Loculated pleural effusion Surgical History Surgery Date Site/Laterality Comments LITHOTRIPSY TONSILLECTOMY CERVICAL BIOPSY W/ LOOP ELECTRODE EXCISION US GUIDED THORACENTESIS 07/17/2022 N/A Medical History Medical History Date Comments Asthma Hepatitis C Anxiety Depression Bipolar 1 disorder (HCC) Family History Medical History Relation Name Comments Alcohol abuse Father Alcohol abuse Mother Relation Name Status Comments Father Mother Social History Tobacco Use Types Packs/Day Years Used Date Smoking Tobacco: Every Day Cigarettes 1 15 Smokeless Tobacco: Never Tobacco Cessation:Ready to Q uit: Yes; Counseling Given: Not Answered Social Connection and Isolat ion Panel [NHANES] Answer Date Recorded In a typical week, how many times do you talk on the phone with family, friends, or neighbors? More than three times a week 08/29/2022 How often do you get togethe r with friends or relatives? More than three times a week 08/29/2022 How often do you attend chur ch or taoism services? Never 08/29/2022 Do you belong to any clubs o r organizations such as orthodoxy groups, unions, fraternal or athletic groups, or school groups? No 08/29/2022 How often do you attend meet ings of the clubs or organizations you belong to? Never 08/29/2022 Are you , , di vorced, , never , or living with a partner? 08/29/2022 AUDIT-C Answer Date Recorded Q1: How often do you have a drink containing alcohol? Never 07/15/2022 Q2: How many drinks containi ng alcohol do you have on a typical day when you are drinking? Patient does not drink Q3: How often do you have si x or more drinks on one occasion? Never 07/15/2022 Overall Financial Resource Strain (CARDIA) Answe r Date Recorded How hard is it for you to pa y for the very basics like food, housing, medical care, and heating? Not very hard 08/29/2022 PHQ-2 Answer Date Recorded PHQ-2 Total Score (If total score is 3 or more points, staff should administer the PHQ-9) 0 07/18/2022 Hunger Vital Sign Answer Date Recorded Within the past 12 months, y ou worried that your food would run out before you got the money to buy more. Never true 08/30/19 Within the past 12 months, t he food you bought just didn't last and you didn't have money to get more. Never true 08/29/2022 PRAPARE - Transportation Answer Date Re corded In the past 12 months, has l ack of transportation kept you from medical appointments or from getting medications? No 04/2022 In the past 12 months, has l ack of transportation kept you from meetings, work, or from getting things needed for daily living? No 08/29/2022 Housing Stability Vital Sign Answer Robby e Recorded In the last 12 months, was t here a time when you were not able to pay the mortgage or rent on time? No 08/29/2022 In the last 12 months, how many places have you lived? 1 08/29/2022 In the last 12 months, was t here a time when you did not have a steady place to sleep or slept in a nursing home (including now)? 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 Gender Identity Not on file Sexual Orientation Not on file Obstetrics History Last Filed Vital Signs Vital Sign Reading Time Taken Comments Blood Pressure 118/79 08/30/2022 12:20 PM CDT Pulse 76 08/30/2022 12:20 PM CDT Temperature 36.2 C (97.2 F) 08/30/2022 8:02 AM CDT Respiratory Rate 18 08/30/2022 12:20 PM CDT Oxygen Saturation 97% 08/30/2022 12:20 PM CDT Inhaled Oxygen Concentration - - Weight 52.4 kg (115 lb 8.3 oz) 08/22/2022 10:33 AM CDT Height 160 cm (5' 3) 08/22/2022 10:33 AM CDT Body Mass Index 20.46 08/22/2022 10:33 AM CDT Plan of Treatment Health Maintenance Due Date Last Done Comments Cervical Cancer Screening 1990 DTaP/Tdap/Td Vaccine (1 - Tdap) 2001 Varicella Vaccines (1 of 2 - 13+ 2-dose series) 2003 Hepatitis B Screening 2008 Regular Well Visit/Exam 18-64 2008 HPV Vaccines (1 - 3-dose SCDM series) 2017 Pneumococcal vaccine <65 (2 of 2 - PCV) 02/04/2018 02/04/2017 Depression Screening 07/15/2023 07/14/2022 Influenza Vaccine (#1) 2024 02/04/2017 Hepatitis C Screening Completed 07/15/2022 , 06/16/2022, 08/09/2021 Procedures Procedure Name Priority Date/Time Associated Diagnosis Comments HEPATITIS PANEL, ACUTE STAT 07/15/2022 8:26 AM CDT from Last 3 Months or Most Recently Relevant to Health Maintenance Results * (ABNORMAL) Hepatitis panel, acute (07/15/2022 8:26 AM CDT) Hep A IgM Nonreactive Nonreactive HUMAIRA ARGUETA (ANDREW) Comment: Interpretive Data: If Hep A IgM Ab is reported as Equivocal, a new sample should be drawn in two weeks for testing. Current interpretive data was last revised on 19. Testing performed by: [address], [address] Hep B core IgM Reactive(A) Nonreactive C ELIJAH ARGUETA (ANDREW) Comment: Critical Result Critical result called to and read back by Capri Lewis (NIR MONTANEZ) on 07/15/2022 13:15:38 CDT_ to Antonella Kardis_. Interpretive Data If HepB Core IgM Ab is reported as Equivocal, a new sample should be drawn in two weeks for testing. Current interpretive data was last revised on 19. Testing performed by: [address] [address] Hep C Ab Reactive(A) Nonreactive HUMAIRA ARGUETA (ANDREW) Comment: Critical result called to and read back by Capri Lewis (NIR MONTANEZ) on 07/15/2022 13:15:38 CDT_ to Antonella Kardis_. Interpretive Data Nonreactive: Antibodies to HCV not detected. Does NOT exclude the possibility of recent exposure to HCV. Equivocal: Equivocal for HCV antibodies. Supplemental molecular testing will be automatically performed to determine infection status in accordance with current CDC screening recommendations. Reactive: Positive for HCV antibodies. This may represent current or past HCV infection. Supplemental molecular testing will be automatically performed to determine current infection status in accordance with current CDC screening recommendations. Interpretive data was last revised on 2019. Testing performed by: [facility], [address] [place] [address]., [id number] HepBsAg Nonreactive Nonreactive HUMAIRA ARGUETA ([place]) Comment:Testing performed by : [facility], [address] [place] [address]., [id number] Blood 07/15/2022 8:26 AM CDT 07/15/2022 10:43 AM CDT Tasneem Guerrero NP LAB MICROBI OLOGY - GENERAL ORDERABLES Edited Result - Final HUMAIRA ARGUETA (ANDREW) [address] [facility] Department [place] [address] from Last 3 Months or Most Recently Relevant to Health Maintenance Insurance [facility] Advance Directives For more information, please contact: [phone] * Full Code (Latest Code Status on File) Date Activated Date Inactivated Comments 08/22/2022 1:15 PM 08/30/2022 7:41 PM * Full Code Date Activated Date Inactivated Comments 07/14/2022 10:26 PM 07/18/2022 7:27 PM * Full Code Date Activated Date Inactivated Comments 06/16/2022 3:46 PM 06/19/2022 7:42 AM Care Teams Director Microbiology Relationship Specialty Start Date End Date Miscellaneous, Not In File PCP - General 12/02/18
--- OUTSIDE RECORDS SUMMARY | 2024-10-21 16:57 | XMS_ITS | Clinical Summary ---
Author Organization [facility] Address [address] [place] [address] Phone Care Team Providers Care Porcelain Finisher Name Role Phone Deyvi Butts APRN, TYRONE Primary Care Provide r Allergies Active Allergy Reactions Criticality Noted Date Comments Codeine Rash Medium 02/02/2017 Latex Rash Medium 02/02/2017 Medications FLUoxetine HCl (PROZAC PO) Take 60 mg by mouth daily. Active nicotine (NICODERM CQ) 14 MG/24HR PATCH 24 HR 1 Patch by Transdermal route daily. 30 Patch 7 Active azithromycin (ZITHROMAX) 250 MG Tablet 1 tab per day x 3 days 3 Tab 7 Active methylPREDNISol one (MEDROL DOSPACK) 4 MG Tablet Therapy Pack Use as per instructions on package. 1 Dose Pack 7 Active albuterol (PROVENTIL HFA, VENTOLIN HFA) 108 (90 Base) MCG/ACT Aerosol Solution take 2 Puffs by inhalation every 4 hours as needed for Wheezing. 8.5 g 7 Active ibuprofen (MOTRIN) 800 MG Tablet Take 1 Tablet by mouth every 8 hours as needed for Mild or more severe pain. 30 Tablet 1 Active Active Problems Problem Noted Date Diagnosed Date Normal vaginal delivery 05/10/2020 Pneumonia 02/02/2017 Hypokalemia 02/02/2017 Rash 02/02/2017 Hepatitis C 02/02/2017 Depression 02/02/2017 Tobacco dependence syndrome 02/02/2017 Bipolar disorder 02/02/2017 History of drug abuse in remission 02/02/2017 Resolved Problems Problem Noted Date Diagnosed Date Resolved Date Severe sepsis 02/02/2017 02/04/2017 Acute respiratory failure with hypoxia 02/02/2017 02/04/2017 Diarrhea 02/02/2017 02/04/2017 Hyperglycemia 02/02/2017 02/04/2017 Immunizations Immunization Administration Dates Next Due Influenza Vaccine, Quadrivalent, PF 02/04/2017 Pneumococcal Vaccine Adult - 23 Valent 7 Family History Medical History Relation Name Comments No Known Problems Father In halfway all of her life Chronic Obstructive Pulmonar y Disease Maternal Grandmother Emphysema Maternal Grandmother Chronic Lung Disease Mother Relation Name Status Comments Father Alive Maternal Grandmother Mother (Age 45) Social History Tobacco Use Types Packs/Day Years Used Date Smoking Tobacco: Every Day Cigarettes 0.1 14 Smokeless Tobacco: Never Tobacco Cessation:Ready to Q uit: Yes; Counseling Given: Yes Alcohol Use Standard Drinks/Week Comments Yes 0 (1 standard drink = 0.6 oz pur e alcohol) occasional PHQ-2 Answer Date Recorded Total Score - Questions 1-9 0 10/2020 [place] Depression Scale Answer Date Recorded RETIRED [place] Depression Score 0 05/07/2020 Last EPDS Self Harm Result Not on file 05/07 Comments No Sex and Gender Information Value Date Recorded Sex Assigned at Not on file Legal Sex Female 8:09 PM CDT Gender Identity Not on file Sexual Orientation Not on file Last Filed Vital Signs Vital Sign Reading Time Taken Comments Blood Pressure 146/84 05/10/2020 8:00 AM RED HAT 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 Pulse 73 05/10/2020 8:00 AM RED HAT 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 Temperature 36.4 C (97.6 F) 05/10/2020 8:00 AM RED HAT 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 Respiratory Rate 18 05/10/2020 8:00 AM RED HAT 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 Oxygen Saturation 98% 05/10/2020 8:00 AM RED HAT 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 Inhaled Oxygen Concentration - - Weight 97.5 kg (215 lb) 05/07/2020 10:12 AM RED HAT 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 Height 162.6 cm (5' 4) 05/07/2020 10:12 AM RED HAT 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 Body Mass Index 36.9 05/07/2020 10:12 AM RED HAT 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 Plan of Treatment Health Maintenance Due Date Last Done Comments TdaP Immunization 1990 Human Papillomavirus (HPV) Immunization (1 - 3-dose series) 2005 Hepatitis B Immunization (1 of 3 - 19+ 3-dose series) 2009 Pap Smear 2011 Cervical Cancer Screening (CCS) 2020 HPV/Cotest 2020 SARS-COV-2 Immunization (2023- season) 2023 Influenza Immunization (#1) 2024 02/04/2017 Respiratory Syncytial Virus (RSV) Immunization (Adult) (1 - 1-dose 75+ series) 2065 Pneumococcal Immunization Combined Aged Out 2016 No longer eligible based on patient's age to complete this topic Meningococcal Immunization (ACWY) Aged Out No longer eligible based on patient's age to complete this topic Rotavirus Immunization Aged Out No lo nger eligible based on patient's age to complete this topic Insurance MEDICAID [place] [address] [address], [place] [address] [address] [place] [place] [address] SOURCES Advance Directives * Full Code (Latest Code Status on File) Date Activated Date Inactivated Comments 05/07/2020 10:16 AM 05/10/2020 9:07 PM CPR-Full [place] atment: FULL ARREST: Attempt Resuscitation/CPR wit intubation and mechanical ventilation. PRE-ARREST: Use entire range of life support measures to stabilize the patient. * Full Code Date Activated Date Inactivated Comments 02/02/2017 7:32 PM 02/04/2017 5:58 PM CPR-Full [place] atment: FULL ARREST: Attempt Resuscitation/CPR wit intubation and mechanical ventilation. PRE-ARREST: Use entire range of life support measures to stabilize the patient. Care Teams Porcelain Finisher Relationship Specialty Start Date End Date Deyvi Butts, CATEGORY ANALYST, AMUSEMENT OR RECREATION CARD CHECKER [address] [place] [address] PCP - General Advanced Practice Nurse 10/20/18
--- OUTSIDE RECORDS SUMMARY | 2024-10-21 16:57 | XMS_ITS | Encounter Summary ---
Author Organization [facility] Address [address] [place] [address] Phone Care Team Providers Care Travel Specialist Name Role Phone Miscellaneous, Not In File Primary Care Provider Unavailable Encounter Details Date Type Department Care Team (Late st Contact Info) Description 03/31/[address] 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
--- OUTSIDE RECORDS SUMMARY | 2024-10-21 16:57 | XMS_ITS | Referral Summary ---
Author Organization [facility] Address [address] [place] [address] Care Team Providers Care Plywood Scarfer Tender Name Role Phone Miscellaneous, Not In File [...] 12:06 PM CDT): Being managed by a irrigation manager. Patient does state that she has meant [...] Subutex [facility], she [...] to monitor Streptococcal bacteremia Loculated pleural effusion Social History Tobacco Use Types Packs/Day Years [...] often do you attend chur ch or yarsanism services? Never 08/29/2022 Do you belong to any clubs o r organizations such as muslim groups, unions, fraternal or athletic groups, or [...] money to buy more. Never true 08/30/19 23 Within the past 12 months, t he [...] place to sleep or slept in a prison (including now)? 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 Testing performed by: [address] [address] Hep B core IgM Reactive(A) Nonreactive Dinesh ARGUETA (ANDREW) Comment: Critical Result Critical result called to and read back by Capri Lewis (NIR MONTANEZ) on 07/15/2022 13:15:38 CDT_ to Antonella Kardis_. Interpretive Data If HepB Core IgM Ab is reported as Equivocal, a new sample should be drawn in two weeks for testing. Current interpretive data was last revised on 19. Testing performed by: [address] [address] Hep C Ab Reactive(A) Nonreactive HUMAIRA ARGUETA [...] last revised on 2019. Testing performed by: [address] [address] HepBsAg Nonreactive Nonreactive HUMAIRA ARGUETA ([place]) Comment:Testing performed by : [address] [address] Blood 07/15/2022 8:26 AM CDT 07/15/2022 10:43 AM CDT Tasneem Guerrero NP LAB MICROBI OLOGY - GENERAL ORDERABLES Edited Result - Final HUMAIRA ARGUETA ANDREW [address] [facility] [place] [address] from Last 3 Months or Most Recently Relevant to Health Maintenance Insurance [facility] Advance Directives For more information, please contact: [phone] * Full Code (Latest Code Status on File) Date Activated Date Inactivated Comments 08/22/2022 1:15 PM 08/30/2022 7:41 PM * Full Code Date Activated Date Inactivated Comments 07/14/2022 10:26 PM 07/18/2022 7:27 PM * Full Code Date Activated Date Inactivated Comments 06/16/2022 3:46 PM 06/19/2022 7:42 AM Care Teams Plywood Scarfer Tender Relationship Specialty Start Date End Date Miscellaneous, Not In File PCP - General 12/02/18
[2024-10-21 16:59] VITALS: BP 125/71; PULSE 72; RESP 16; TEMP 36.2; O2SAT 99
--- NOTE | 2024-10-21 17:02 | ED.URI ---
HPI - URI/Sore Throat General Chief Complaint: Upper Respiratory Infection Stated Complaint: Sinus Problem Time Seen by Provider: 10/21/24 17:03 Source: patient Mode of arrival: ambulatory Limitations: no limitations History of Present Illness HPI Narrative: 34-year-old female presents with complaint of nasal congestion, sinus pressure starting last night. Patient states I am getting a sinus infection . Not taking any [id number] medications to treat symptoms. Afebrile. No sore throat or cough. All systems reviewed and negative except as noted above. Related Data Home Medications ?Medication ?Instructions ?Recorded ?Confirmed ?Last Taken ?Type budesonide-formoterol HFA 80 2 puff inhalation Q12H 05/25/19 05/25/19 Unknown History mcg-4.5 mcg/actuation aerosol inhaler (Symbicort) fluoxetine 20 mg capsule 20 mg PO DAILY 05/25/19 05/25/19 Unknown History hydroxyzine HCl 50 mg tablet 50 mg PO TID 05/25/19 05/25/19 Unknown History omeprazole 20 mg capsule,delayed 20 mg PO DAILY 05/25/19 05/25/19 Unknown History release quetiapine 200 mg tablet 200 mg PO HS 05/25/19 05/25/19 Unknown History hydroxyzine pamoate 25 mg capsule 25 mg PO TID 11/04/19 Unknown History (Vistaril) omeprazole 20 mg capsule,delayed 11/04/19 Unknown History release ondansetron HCl 4 mg tablet 11/04/19 11/04/19 Unknown History sertraline 50 mg tablet 50 mg PO DAILY 11/04/19 Unknown History Allergies Allergy/AdvReac Type Severity Reaction Status Date / Time codeine Allergy Intermediate rash and Verified 10/21/24 17:03 vomiting latex Allergy Rash Unverified 10/21/24 17:03 [facility] Past Medical History Medical History (Updated 10/21/24 @ 17:08 by Tamika Askew NP) Hepatitis C History of LEEP (loop electrosurgical excision procedure) of cervix complicating History of LEEP (loop electrosurgical excision procedure) of cervix complicating Hepatitis C GERD (gastroesophageal reflux disease) Hepatitis C Bipolar depression Asthma Surgical History Surgical History (Updated 04/14/23 @ 15:26 by Jose Munroe) History of lithotripsy History of tonsillectomy History of lithotripsy History of tonsillectomy Status post tooth extraction, class I edentulism Hx of tonsillectomy H/O LEEP Social History Social History (System 04/14/23 @ 15:26 by Jose Munroe) Smoking packs per day: 1 Smoking cigarettes per day: 20.0 Smoking status: Current every day smoker Alcohol intake: former Substance use: unknown Substance use type: heroin Living arrangements: with family Gender identity (if verbalized by the patient): Female Comments At time of signature, agree with nursing past medical, surgical, social and family history. There is no relevant family history pertinent to the presenting complaint. Exam Narrative: GENERAL: This is a well-nourished, well-developed patient, in no apparent distress. HEAD: normocephalic, atraumatic. EYES: PERRL. Sclera clear/white. Vision is grossly intact. EARS: External ears normal, auditory canals clear and without drainage, TMs normal without perforation. Hearing grossly intact. NOSE: External nose normal with Mild congestion, clear nasal drainage. No significant erythema or swelling to nares THROAT: Mucous membranes moist, posterior pharynx clear. NECK: Neck supple, non-tender without lymphadenopathy, masses or thyromegaly. CARDIOVASCULAR: Regular rate and rhythm without murmurs, gallops, or rubs. RESPIRATORY: Clear to auscultation. Breath sounds equal bilaterally. No wheezes, rales, or rhonchi. SKIN: warm, Dry, intact with no suspicious lesions or rash, good texture and turgor. NEURO: awake, alert, and oriented to person, place and time. There were no obvious focal neurologic abnormalities. EXTREMITIES: No joint tenderness, effusion, or edema noted. Course Course Level of Care: Express Care Visit Vital Signs Vital signs: reviewed MDM - URI/Sore Throat MDM Narrative Medical decision making narrative: sinus symptoms for 1 day. Recommend [id number] medications to treat viral symptoms. Patient requesting that medications be sent to pharmacy even if [id number] as unsure if this may care for them. Patient is well-appearing, nontoxic. Lungs clear to auscultation. Differential Diagnosis Differential diagnosis: Likely upper respiratory infection, sinusitis and viral infection Discharge Plan Discharge Clinical Impression: Acute viral sinusitis Patient Disposition: Home Condition: Stable Instructions: Sinusitis (ED) Additional Instructions: your symptoms are viral and may last 10-14 days. Take medications as prescribed. Drink at least 64 oz of water a day. See your doctor if symptoms are not improving. Patient Language: [place] Prescriptions: New fluticasone propionate [Flonase Allergy Relief] 50 mcg/actuation spray,suspension 1 spray intranasal BID Qty: 16 0RF Rx Instructions: administer into each nostril loratadine [Claritin] 10 mg tablet 10 mg PO DAILY Qty: 30 0RF pseudoephedrine HCl 60 mg tablet 60 mg PO Q4-6H PRN (Reason: nasal congestion) Qty: 20 0RF Rx Instructions: DNExceed 4 doses/24h No Action hydroxyzine HCl 50 mg Tablet 50 mg PO TID fluoxetine 20 mg Capsule 20 mg PO DAILY quetiapine 200 mg Tablet 200 mg PO HS omeprazole 20 mg Capsule,Delayed Release(Dr/Ec) 20 mg PO DAILY budesonide-formoterol [Symbicort] 80-4.5 mcg/actuation Hfa Aerosol Inhaler 2 puff INHALATION Q12H cephalexin [Keflex] 500 mg capsule 500 mg PO Q8H Qty: 30 0RF triamcinolone acetonide 0.1 % ointment 1 applic TOPICAL TID Qty: 80 0RF Rx Instructions: never apply to face methylprednisolone [Medrol (Jewel)] 4 mg tablets,dose pack See Rx Instructions .ROUTE .COMPLEX Qty: 21 0RF Rx Instructions: orally per package directions ondansetron HCl 4 mg tablet omeprazole 20 mg capsule,delayed release(DR/EC) sertraline 50 mg Tablet 50 mg PO DAILY hydroxyzine pamoate [Vistaril] 25 mg Capsule 25 mg PO TID Follow-up/Referrals: Juan C Cardoso MD [Primary Care Provider] - Stand Alone Forms: Work/School Release IP Time of Disposition: 17:11
== END 2024-10-21 17:17 | disposition home or self-care (01) ==
PROVIDERS: Emergency Provider Nurse Practitioner Family; PCP Internal Medicine
DX: J01.90 Acute sinusitis, unspecified (principal); F17.210 Nicotine dependence, cigarettes, uncomplicated; J45.909 Unspecified asthma, uncomplicated; F31.9 Bipolar disorder, unspecified; K21.9 Gastro-esophageal reflux disease without esophagitis; Z86.19 Personal history of other infectious and parasitic diseases
CPT/HCPCS: 99213; G0463